=== PATIENT | female | born 1960 | race Caucasian/White ===

== ENCOUNTER 2017-09-28 18:54 | Emergency (ER) | payer MEDICAID ==
[~2017-09-28] VITALS: Ht 152.4 cm; Wt 54.4 kg
[~2017-09-28 18:54] MED LIST: ACETAMINOPHEN-1 EAC1 PO; AMITRIPTYLINE H75 M1 PO; ASPIR 8181 MG PO; ASPIRIN325; ASPIRIN81 M2 PO; ATORVASTATIN CA20 MG PO; CELEXA40 MG PO; CIPRO500 MG PO; CLONAZEPAM 0.50.5 M1 PO; CLONAZEPAM 1 MG1 M1; CLONAZEPAM 1 MG1 M1 PO; CREON DR 12,001 EACH; DILANTIN100 MG PO; EFFIENT10 MG PO; FIORICET-COD 31 EACH PO; FLAGYL500 MG PO; FLEXERIL PO; HYDROCODON-ACE1 EAC7 PO; HYDROCODON-ACE1 EAC8 PO; HYDROCODONE-AP1 EAC6 PO; IBUDONE 5-2001 EACH PO; IBUPROFEN 800800 M1 PO; KEPPRA 500 MG500 M1 PO; KEPPRA 500 MG500 MG PO; KEPPRA1000 MG PO; KLONOPIN0.5 MG PO; LINZESS145 MCG PO; LISINOPRIL10 MG PO; LISINOPRIL20 MG PO; MEDROLDOSEPACK PO; MIRALAX17 GM PO; MOBIC7.5 M1 PO; NAPROSYN500 MG PO; NITROGLYCERIN0.4 MG SUBLING; NORCO 5-325 TA1 EACH PO; NORCO 7.5-3251 EACH PO; NORFLEX100 MG PO; OMEPRAZOLE20 M2 PO; OXYCODONE HCL E10 MG; OXYCODONE HCL5 M1 PO; OXYCONTIN10 M1 PO; PANTOPRAZOLE SO40 M1 PO; PERCOCET 5-3251 EACH PO; PHENERGAN 25 MG25 M1 PO; PLAVIX 75 MG TA75 M1 PO; PREDNISONE 20 M20 M1 PO; PREDNISONE50 MG PO; PRILOSEC 20 MG20 MG PO; PRILOSEC20 MG PO; PRINIVIL20 MG PO; PROBIOTIC1 EAC1 PO; PROTONIX40 M1 PO; RANITIDINE HCL150 M1 PO; ROBAXIN 750 MG750 M1 PO; ROBAXIN 750 MG750 MG PO; ROBAXIN500 MG PO; ZANTAC 150MG T150 MG PO
[2017-09-28 19:08] VITALS: BP 148/100
[2017-09-28] MEDS ORDERED: KEPPRA 500 MG500 M2 PO (19:32)
== END 2017-09-28 19:39 | disposition home or self-care (01) ==
LOC: M.ERS 18:54
DX: Z76.0 Encounter for issue of repeat prescription (principal); I25.2 Old myocardial infarction; Z90.710 Acquired absence of both cervix and uterus; Z88.1 Allergy status to other antibiotic agents; Z88.2 Allergy status to sulfonamides

== ENCOUNTER 2019-01-24 22:59 | Emergency (ER) | payer MEDICAID ==
[~2019-01-24] VITALS: Ht 152.4 cm; Wt 54.4 kg
[~2019-01-24 22:59] MED LIST changes: +KEPPRA 500 MG500 M2 PO
[2019-01-24] MEDS ORDERED: CYMBALTA60 MG PO (23:31)
[2019-01-24] MEDS ORDERED: CLONAZEPAM 1 MG1 M1 PO (23:32)
[2019-01-25] MEDS ORDERED: CLONAZEPAM 1 MG1 M1 PO (00:19)
[2019-01-25 00:33] VITALS: BP 118/70
== END 2019-01-25 00:33 | disposition home or self-care (01) ==
LOC: M.ERS 22:59
DX: F41.9 Anxiety disorder, unspecified (principal); Z76.0 Encounter for issue of repeat prescription; F32.9 Major depressive disorder, single episode, unspecified; M19.90 Unspecified osteoarthritis, unspecified site; Z88.1 Allergy status to other antibiotic agents; Z88.2 Allergy status to sulfonamides; Z88.5 Allergy status to narcotic agent; Z88.8 Allergy status to other drugs, medicaments and biological substances; Z90.710 Acquired absence of both cervix and uterus; Z86.14 Personal history of Methicillin resistant Staphylococcus aureus infection

== ENCOUNTER 2019-02-18 21:34 | Inpatient (IN) | payer MEDICAID ==
[~2019-02-18] VITALS: Ht 152.4 cm; Wt 59.9 kg
--- NOTE | ~2019-02-18 | PROC ---
[address] [address] PROCEDURE REPORT Name: CHANNING GOMEZ Room: [address] IN .R.#: [id number] Admission: 02/19/19 Attend Phys: Kristian Jain MD Discharge: 02/23/19 Date of : 58 Report #: [id number] THIS REPORT FOR: //name// For GI report, please see the Provation report in Perceptive 7 content. By: 0607Medical Records Staff NICHO /DAYTON
[~2019-02-18 21:34] MED LIST changes: +CYMBALTA60 MG PO
[2019-02-18 21:36] VITALS: BP 97/55
[2019-02-18 21:58] LABS: ABSOLUTE BASOPHILS 0.1 thou/uL (0.0-0.2); ABSOLUTE MONOCYTES 0.3 thou/uL (0.0-1.2); ABSOLUTE NEUTROPHILS 3.2 thou/uL (1.6-8.1); BASOPHILS 0.7 %; EOSINOPHILS 0.5 %; HEMATOCRIT 50.2 % (37.0-47.0); HEMOGLOBIN 17.2 gm/dL (12.0-15.0); MCH 29.6 pg (26.0-34.0); MCHC 34.2 g/dL (28.0-37.0); MCV 86.7 fL (80.0-100.0); MONOCYTES 4.5 %; MPV 7.8 fl. (7.2-11.1); NUCLEATED RBCS 0 /100WBC; PLATELET COUNT* 370 thou/uL (150-400); POLYS 42.3 %; RBC 5.79 mil/uL (4.20-5.00); RDW-CV 13.6 % (10.5-14.5); WBC 7.6 thou/uL (4.0-11.0)
[2019-02-18 22:12] LABS: BUN 9 mg/dL (7-18); CALCIUM 9.2 mg/dL (8.5-10.1); CO2 16 mmol/L (21-32); CREATININE 0.9 mg/dL (0.6-1.3); GLUCOSE 133 mg/dL (70-99)
[2019-02-18 22:24] LABS: SODIUM 128 mmol/L (136-145)
[2019-02-18 22:25] LABS: ANION GAP 19 mmol/L (7-16); CHLORIDE 93 mmol/L (98-107); POTASSIUM 4.3 mmol/L (3.5-5.1)
[2019-02-18 22:35] LABS: ALBUMIN 4.3 g/dL (3.4-5.0); ALKALINE PHOSPHATASE 216 U/L (46-116); LIPASE 120 U/L (73-393); NT-PRO BRAIN NAT PEPTIDE 146 pg/mL (<300); SGOT 25 U/L (15-37); SGPT 19 U/L (30-65); TOTAL BILIRUBIN 0.5 mg/dL (<0.1-1.0); TOTAL PROTEIN 7.3 g/dL (6.4-8.2); TROPONIN-I LEVEL <0.06 ng/mL (<0.06)
--- NOTE | 2019-02-18 22:35 | NUR ---
PT HAS HAD A EXTREMELY LARGE SOFT BROWN BM. PT STATED HASNT BEEN TO BATHROOM IN A LONG TIME. PT CONTINUES TO SIT ON BED SINCLAIR
[2019-02-19] VITALS (13 sets, daily range): BP systolic 92–148; BP diastolic 53–121
[2019-02-19 00:24] LABS: INR 1.1; PROTIME 11.4 Seconds (9.20-11.50)
--- NOTE | 2019-02-19 00:43 | NUR ---
PT HAS HAD 3 LARGE SOFT BROWN STOOLS. PT C/O ABDOMINAL PAIN. MONITORS INTACT. FAMILY AT BEDSIDE.
[2019-02-19 01:51] LABS: URINE BILIRUBIN NEGATIVE (Negative); URINE BLOOD TRACE (Negative); URINE CLARITY CLEAR; URINE COLOR YELLOW; URINE GLUCOSE-RANDOM NEGATIVE (Negative); URINE KETONES NEGATIVE (Negative); URINE LEUKOCYTES-REFLEX NEGATIVE (Negative); URINE NITRITE-REFLEX NEGATIVE (Negative); URINE PROTEIN NEGATIVE (Negative); URINE SPECIFIC GRAVITY <= 1.005 (1.005-1.030); URINE UROBILINOGEN 0.2 E.U./dl (0.2-1.0)
[2019-02-19 01:58] LABS: AMP/METHAMP Negative (Negative); BARBITURATES Negative (Negative); BENZODIAZEPINES Negative (Negative); COCAINE Negative (Negative); METHADONE Negative (Negative); OPIATES Negative (Negative); PCP Negative (Negative); THC Negative (Negative)
[2019-02-19 04:39] LABS: ALBUMIN 3.2 g/dL (3.4-5.0); CALCIUM 8.2 mg/dL (8.5-10.1); POTASSIUM 4.1 mmol/L (3.5-5.1); TOTAL BILIRUBIN 0.3 mg/dL (<0.1-1.0); TOTAL PROTEIN 5.9 g/dL (6.4-8.2)
[2019-02-19 04:59] LABS: HEMATOCRIT 49.7 % (37.0-47.0); HEMOGLOBIN 15.9 gm/dL (12.0-15.0); MCH 28.8 pg (26.0-34.0); MCHC 31.9 g/dL (28.0-37.0); MCV 90.3 fL (80.0-100.0); NUCLEATED RBCS 0 /100WBC; RBC 5.51 mil/uL (4.20-5.00); RDW-CV 13.7 % (10.5-14.5); WBC 19.4 thou/uL (4.0-11.0)
--- NOTE | 2019-02-19 05:02 | NUR ---
PATIENT TO ICU ROOM 2 AT 0230 ACCOMPANIED BY RN AND ON A BED. NO BM SINCE ARRICAL, DENIES NAUSEA. PAIN MED FOR ABDOMINAL PAIN X1 WITH COMPLETE RELIEF, SLEEPING AT THIS TIME. VITALS WNL, AFEBRILE. ON 2L NC FOR COMFORT. ABLE TO TURN SELF IN BED. CALL LIGHT WITHIN REACH.
[2019-02-19 05:16] LABS: PLATELET COUNT* 264 thou/uL (150-400)
[2019-02-19 05:59] LABS: ABSOLUTE LYMPHOCYTES 1.6 thou/uL (0.8-5.3); ABSOLUTE MONOCYTES 0.2 thou/uL (0.0-1.2); ABSOLUTE NEUTROPHILS 17.7 thou/uL (1.6-8.1)
[2019-02-19 06:00] LABS: ANISOCYTOSIS 1+; PLATELET ESTIMATE ADEQUATE; POIKILOCYTOSIS 1+
--- NOTE | 2019-02-19 08:18 | NUR ---
PATIENT GOING TO CTA AND ULTRASOUND AT THIS TIME
[2019-02-19] MEDS ORDERED: BENTYL 10 MG CA10 M1 PO (09:16)
--- NOTE | 2019-02-19 10:09 | NUR ---
PATIENT NOW TELE STATUS
--- NOTE | 2019-02-19 10:26 | NUR ---
cm completed initial assessment. pt a&ox3. pt states she lives with her son and her grandchildren. states her mother recently moved in w/them temporarily. pt is active and independent. states she walks "[place]" often. walks several miles daily. pt has been understress d/t her son not feeling well and recent separation from spouse. cm assessed for support system, resource needs. pt uses [facility] for emotional support. was seeing a pyschologist there, and attends meetings there. also, has support from family system. she volunteers sometimes when feeling good. pt has no DMEs. cm to remain avail to follow pt and assist as needed w/ d/c needs. ICU rounds: pt is officially MS tele status now. will move upstairs today. has chronic px issues. .
--- NOTE | 2019-02-19 11:30 | NUR ---
CONSULTED TO PLACE PICC FOR PRODUCTION OPERATIONS MANAGER ATB AND FLUIDS. CHART AND HISTORY REVIEWED. SPOKE WITH PT REGUARDING RISK NAD BENEFIT. STATED HAS HAD PICC LINE IN PAST. VOICED UNDERSTANDING ADN AGREED. RIGHT UPPER ARM ASSESSED WITH ULTRASOUND. RIGHT BASILIC IDENTIFED AND NOTED TO BE WIDLEY PATENT. DOUBLE LUMAN POWER PICC PLACED PER POLICY. LINE TRIMMED AT 40CM AND ADVANCED 39CM LEAVING 1CM EXTERNAL. LINE SECURED. BOTH LUMANS HAVE GOOD BRISK BLOOD RETURN AND FLUSH WITH EASE. TIP CONFORMATION MARISELA JAQUEZ 3CG. KIMBERLYN RELEASED FOR USE TO PRIMARY RN.
--- NOTE | 2019-02-19 14:35 | NUR ---
REPORT CALLED TO ARTURO RN. ALL QUESTIONS ANSWERED. PATIENT TAKEN BY WHEELCHAIR TO ROOM 220 WITH NURSING STAFF. ALL BELONGINGS, MEDICATIONS, CHART TAKEN WITH PATIENT.
--- NOTE | 2019-02-19 14:48 | NUR ---
RECEIVED REPORT AND ASSUMED CARE OF PT @ 6049.PT IS A/O X4,VSS,TRACING SR ON THE MONITOR.THIS NURSE REVIEWED PREVIOUS NURSE CHARTING AND AGREES WITH CHARTING.WILL CONTINUE TO MONITOR
--- NOTE | 2019-02-19 17:01 | NUR ---
VSS.MOTION PICTURE OPERATOR IN PLACE WITH NO CHANGES.PT PROGRESSING TOWARDS GOALS.C/O PAIN IN BACK-MANAGED WELL WITH MEDICATIONS.IV PATENT WITH IV FLUIDS INFUSING PER ORDERS.PT TO BE NPO AT MIDNIGHT FOR GI PROCEDURE IN THE AM.PT INFORMED OF PLAN OF CARE AND COMMUNICTES UNDERSTANDING.HOURLY ROUNDING COMPLETED FOR PT SAFETY.CALL LIGHT WITHIN REACH.WILL CONTINUE TO MONITOR FOR DURATION OF SHIFT.
[2019-02-20] VITALS: BP 98/50
[2019-02-20 04:00] VITALS: BP 106/58
--- NOTE | 2019-02-20 05:07 | NUR ---
PATIENT PARTIALLY PROGRESSING TOWARDS GOALS: PATIENT RECEIVED PAIN MEDICATION FOR ABDOMINAL PAIN, RELIEF OBTAINED. PATIENT STATES SHE WAS "ABLE TO SLEEP FOR THE FIRST TIME IN A LONG TIME." PAIN MEDICATION BEING HELD NOW FOR GASTRIC EMPTYING TEST TODAY. NPO. PATIENT VERBALIZES UNDERSTANDING. CALL LIGHT WITHIN REACH
[2019-02-20 07:45] VITALS: BP 104/58
[2019-02-20 07:50] LABS: HEMATOCRIT 27.1 % (37.0-47.0); MCH 29.8 pg (26.0-34.0); MCHC 33.5 g/dL (28.0-37.0); MCV 88.9 fL (80.0-100.0); MPV 7.7 fl. (7.2-11.1); RBC 3.05 mil/uL (4.20-5.00); RDW-CV 13.4 % (10.5-14.5)
[2019-02-20 07:52] LABS: HEMOGLOBIN 9.1 gm/dL (12.0-15.0); WBC 3.5 thou/uL (4.0-11.0)
[2019-02-20 08:13] LABS: ALBUMIN 2.7 g/dL (3.4-5.0); CALCIUM 7.7 mg/dL (8.5-10.1); CREATININE 0.7 mg/dL (0.6-1.3); MAGNESIUM 1.5 mg/dL (1.8-2.4); POTASSIUM 3.9 mmol/L (3.5-5.1); TOTAL BILIRUBIN 0.2 mg/dL (<0.1-1.0); TOTAL PROTEIN 4.8 g/dL (6.4-8.2)
--- NOTE | 2019-02-20 09:00 | EKG ---
[place] [address] ELECTROCARDIOGRAM REPORT Name: CHANNING GOMEZ Room: [address] ADM IN .R.#: [id number] Admission: 02/19/19 Attend Phys: Kristian Jain MD Discharge: Date of : 58 Report #: [id number] THIS REPORT FOR: //name// [facility] ED Test Date: 2019-02-18 Test Time: 21:59:15 Pat Name: CHANNING GOMEZ Department: Room: [facility] Gender: F Requirements Manager: [place] : 1960 Requested By: Tosha Schulz Order Number: [id number] MD: Cash Chew Measurements Intervals Nakina Rate: 103 P: 42 CT: 130 QRS: 16 QRSD: 80 T: 74 QT: 331 QTc: 434 Interpretive Statements Sinus tachycardia Possible left atrial enlargement Minimal ST depression, lateral leads Compared to ECG 05/27/2017 16:18:08 ST (T wave) deviation now present Sinus rhythm no longer present Electronically Signed On 02-20-2019 9:00:50 CDT by Cash Chew [email or web address] <ELECTRONICALLY SIGNED> By: Cash Chew MD, FACC 02/20/19 0900 2159 [id number] Cash Chew MD, [facility] /EPI
[2019-02-20 12:21] VITALS: BP 102/64
[2019-02-20 12:28] LABS: CALCIUM 7.9 mg/dL (8.5-10.1); CREATININE 0.7 mg/dL (0.6-1.3)
[2019-02-20 16:30] VITALS: BP 115/65
--- NOTE | 2019-02-20 17:48 | NUR ---
PATIENT RESTING IN BED. PATIENT IS UP AD STEPHIE IN ROOM. PATIENT HAS COMPLAINTS OF ABDOMINAL PAIN, TREATED WITH MORPHINE. PATIENT HAD GET THIS AM WITHOUT INCIDENT. PATIENT STARTED ON BOWEL PREP THIS EVENING FOR SUNDAY COLONOSCOPY. PATIENT IS TOLERATING CLEAR LIQUIDS. PATIENT DENIES ANY NEEDS AT THIS TIME. CALL LIGHT WITHIN REACH. WILL CONTINUE TO MONITOR.
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
[2019-02-20 19:45] VITALS: BP 129/80
[2019-02-21] VITALS: BP 131/75
[2019-02-21 04:00] VITALS: BP 128/75
[2019-02-21 04:17] LABS: HEMATOCRIT 27.1 % (37.0-47.0); HEMOGLOBIN 9.3 gm/dL (12.0-15.0); MCH 30.6 pg (26.0-34.0); MCHC 34.4 g/dL (28.0-37.0); MPV 7.6 fl. (7.2-11.1); RBC 3.04 mil/uL (4.20-5.00); RDW-CV 13.4 % (10.5-14.5); WBC 3.3 thou/uL (4.0-11.0)
[2019-02-21 04:33] LABS: CREATININE 0.7 mg/dL (0.6-1.3); POTASSIUM 3.9 mmol/L (3.5-5.1)
--- NOTE | 2019-02-21 05:30 | NUR ---
Patient progressing towards goals: VSS on room air. Patient continues to have c/o abdominal pain, relieved with Morphine. Patient tolerating clear liquids. Bowel prep in progress for EGD/Colonoscopy 02/22. Patient has not had a BM yet. Call light within reach
[2019-02-21 08:00] VITALS: BP 120/67
[2019-02-21 11:30] VITALS: BP 123/60
--- NOTE | 2019-02-21 14:19 | NUR ---
WAS ASKED TO CALL IN SCRIPT TO [facility] FOR LINZESS TO PHARMACY. SHAYY/SURVEY FIELD TECHNICIAN FOR GI WAS ON FLOOR AND ASKED THAT DOSE BE THE 145MCG DAILY, CALLED IN UNDER NAME TO CHECK COST AND IF NEEDED PRIOR AUTH. SPOKE WITH SAIGE/BRADY. AWAIT CALL BACK
[2019-02-21 16:33] VITALS: BP 131/77
--- NOTE | 2019-02-21 17:53 | NUR ---
PATIENT TOLERATING PREP WELL. RECEIVING PAIN MED Q 3 HOURS. SOME LIQUID STOOLS SEEN COPIOUS URINE OUT. PROGRESSING.
[2019-02-21 19:40] VITALS: BP 137/71
[2019-02-22] VITALS: BP 133/79
[2019-02-22 04:00] VITALS: BP 159/83; BP 168/74
[2019-02-22 04:35] LABS: HEMOGLOBIN 9.4 gm/dL (12.0-15.0); MCH 29.8 pg (26.0-34.0); MCHC 33.5 g/dL (28.0-37.0); MCV 88.9 fL (80.0-100.0); MPV 7.8 fl. (7.2-11.1); RBC 3.15 mil/uL (4.20-5.00); RDW-CV 13.5 % (10.5-14.5); WBC 4.2 thou/uL (4.0-11.0)
[2019-02-22 05:05] LABS: CALCIUM 7.9 mg/dL (8.5-10.1); CREATININE 0.5 mg/dL (0.6-1.3); MAGNESIUM 1.5 mg/dL (1.8-2.4); POTASSIUM 3.4 mmol/L (3.5-5.1)
--- NOTE | 2019-02-22 07:42 | NUR ---
PT CARE ASSUMED AT 1930. SAT MAINTAINED IN RA. ALERT AND ORIENTED X4. CALL LIGHT WITHIN REACH AND BED IN LOW POSITION. C/O PAIN, MEDICATION GIVEN PER EMAR. HOURLY ROUNDING DONE FOR PT SAFETY.
[2019-02-22 08:10] VITALS: BP 116/72
--- NOTE | 2019-02-22 09:02 | NUR ---
ASSUMED CARE OF PT THIS AM AROUND 07- SHEEP FARMER IN PLACE ORDERED, TRACING SB- UPON ASSESSMENT PT NOTED TO BED RESTING IN BED- PT A&O X4- CONTINENT OF BOWEL AND BLADDER- UP AD-STEPHIE IN ROOM, STEADY GAIT NOTED- LCTA, RESP EVEN AND UN-LABORED- VSS, O2 SAT 94% ON RA- ABD SOFT/ROUND/TENDER, BS X4 QUADS- PT NOTED TO HAVE BM THIS AM, CURRENTLY ON BOWLE PREP FOR SCHEDULED EGD/COLONOSCOPY TODAY- CURRENTLY NPO- RUE PICC NOTED C/D/I, IVF INFUSSING PRESCIBED- CALL LIGHT AND PERSONAL BELONGINGS WITH IN REACH- PT MAKES NEEDS KNOWN- ALL NEEDS MET AT THIS TIME-WCTM
[2019-02-22 12:28] VITALS: BP 151/87
--- NOTE | 2019-02-22 12:50 | NUR ---
SPOKE WITH DR HERNANDEZ, UNABLE TO OBTAIN AUTH WITH ADD'L INFO FOR LINZESS OVER WEEKEND MEDICAID IS CLOSED AND DRUG NEEDS PRIOR AUTH. WILL PURSUE ON SUNDAY
--- NOTE | 2019-02-22 16:14 | NUR ---
PT CURRENTLY RESTING IN BED- SENIOR DENTIST D/C'D WITH PT NOTED TO BE MS STATUS- RUE PICC NOTED INTACT, IVF INFUSSING PRESCIBED- EGD/COLONOSCOPY COMPLETED THIS SHIFT WITH RESULTS NOTED IN MEDITECH- IV ABT D/C PER GI THIS SHIFT POST PROCEDURE- BENTYL X1 THIS SHIFT AT 1300, GOOD PO INTAKE NOTED-CALL LIGHT AND PERSONAL BELONGINGS WITH IN REACH- PT MAKES NEEDS KNOWN- ALL NEEDS MET AT THIS TIME-WCTM
[2019-02-22 20:00] VITALS: BP 156/95
[2019-02-23 03:12] LABS: HEMATOCRIT 27.9 % (37.0-47.0); HEMOGLOBIN 9.5 gm/dL (12.0-15.0); MCH 30.1 pg (26.0-34.0); MCV 88.7 fL (80.0-100.0); RBC 3.15 mil/uL (4.20-5.00); RDW-CV 13.7 % (10.5-14.5); WBC 4.2 thou/uL (4.0-11.0)
[2019-02-23 04:20] LABS: CALCIUM 7.9 mg/dL (8.5-10.1); CREATININE 0.6 mg/dL (0.6-1.3); MAGNESIUM 1.6 mg/dL (1.8-2.4); PHOSPHORUS* 3.3 mg/dL (2.5-4.9); POTASSIUM 3.7 mmol/L (3.5-5.1)
--- NOTE | 2019-02-23 05:11 | NUR ---
PT SLEPT ON AND OFF THIS SHIFT. ASSESSMENT DOCUMENTED. MEDS GIVEN PER E-MAR. PATIENT ORIENTED TO SELF, SOMETIMES PLACE. PTS DAUGHTER REMAINED AT BEDSIDE. PT STATED SHE DID NOT HAVE PAIN, BUT PTS DAUGHTER STATED THAT SHE DID, PTS DAUGHTER WOULD TELL PATIENT WHAT NUMBER TO RATE HER PAIN. PT HAD STRESS INCONTINENCE THROUGH NIGHT. IV PATENT, FLUIDS INFUSING. WILL CONTINUE WITH PLAN OF CARE.
--- NOTE | 2019-02-23 05:16 | NUR ---
PT SLEPT ON AND OFF THIS SHIFT. ASSESSMENT DOCUMENTED. MEDS GIVEN PER E-MAR. PICC PATENT, FLUIDS INFUSING. PAIN AND NAUSEA MEDS GIVEN PER E-MAR. WILL CONTINUE WITH PLAN OF CARE.
[2019-02-23 08:00] VITALS: BP 138/80
[2019-02-23] MEDS ORDERED: ZOFRAN ODT4 MG PO (10:20)
[2019-02-23] MEDS ORDERED: NORCO 5-325 TA1 EAC1 PO (10:20)
[2019-02-23] MEDS ORDERED: OMEPRAZOLE40 MG PO (10:20)
[2019-02-23 11:36] VITALS: BP 144/77
[2019-02-23] MEDS ORDERED: CLONAZEPAM 1 MG1 M1 PO (14:34)
[2019-02-23 14:37] VITALS: BP 144/77
--- NOTE | 2019-02-23 16:45 | NUR ---
PT UP IN ROOM WITH STEADY GAIT. TOLERATING PO WELL. REPORTS OCASSIONAL ABD PAIN. PLAN TO DC TONIGHT
--- NOTE | 2019-02-25 15:07 | PATH ---
[address] [address] PATHOLOGY RPT PROCEDURE Name: NANETTE FITZGERALD Room: [address] IN ..#: [id number] Admission: 02/19/19 Date of : 58 Discharge: 02/23/19 Report #: [id number] Path Case #: [id number] [facility] Accession Number: [id number] . 01 Material submitted: . PART A: stomach - GASTRIC BIOPSY PART B: colon - RANDOM COLON BIOPSIES . 01 Clinical history: . A. For H. pylori . 02 Diagnosis: A. 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 . B. Random colon biopsies: - Faint melanosis coli and focal fresh hemorrhage in otherwise normal colonic mucosa. (HOLLY:alexandra; 02/25/2019) . Special stain: H. pylori immuno on A MBR/02/25/2019 . 02 Electronically signed: . Vahid Berger MD, Pathologist NPI- [id number] . 01 Gross description: . A. The specimen is received in formalin, labeled "Nanette Fitzgerald, gastric biopsy" and consists of 2 fragments of pink-ness tissue measuring 0.3 x 0.3 cm and 0.4 x 0.2 cm which are entirely submitted in A1. . B. The specimen is received in formalin, labeled "Nanette Fitzgerald, random colon biopsies" and consists of multiple fragments of ness tissue measuring 1.2 x 0.8 x 0.2 cm in aggregate which are entirely submitted in B1. (SDY; 02/24/2019) SYU/SYU . 02 Pathologist provided ICD-10: K29.50, K63.89 . 02 CPT . 480474, 645256, M25188 Specimen Comment: A courtesy copy of this report has been sent to Specimen Comment: [phone], . Specimen Comment: Report sent to / DR ZULETA Performed at: [address] [place] [address] PATHOLOGY RPT PROCEDURE Name: NANETTE FITZGERALD OVIDIO Room: [address] IN M.R.#: [id number] Admission: 02/19/19 Date of : 58 Discharge: 02/23/19 Report #: [id number] Path Case #: [id number] [facility] [place] [address] [facility] [address], [place], [place] [id number] MD Hayden Guzman MD Phone: [phone] Performed at: [address] [facility] [address] [place] [id number] MD Vahid Berger MD Phone: [phone]
== END 2019-02-23 16:49 | disposition home or self-care (01) | DRG 394 ==
LOC: M.ERS 21:34 → M.2W 02-19 00:10 → M.TBA-ER 02-19 00:10 → M.ICU 02-19 00:10 → M.2W 02-19 14:31
PROVIDERS: Emergency Medicine; Internal Medicine; Surgery; ADMIT Internal Medicine
PROC: 05HY33Z Insertion of Infusion Device into Upper Vein, Percutaneous Approach (ICD-10-PCS; 2019-02-19)
PROC: 0DB68ZX Excision of Stomach, Via Natural or Artificial Opening Endoscopic, Diagnostic (ICD-10-PCS; principal; 2019-02-22)
DX: K55.9 Vascular disorder of intestine, unspecified (principal); E87.1 Hypo-osmolality and hyponatremia; R65.10 Systemic inflammatory response syndrome (SIRS) of non-infectious origin without acute organ dysfunction; F41.9 Anxiety disorder, unspecified; F32.9 Major depressive disorder, single episode, unspecified; I25.10 Atherosclerotic heart disease of native coronary artery without angina pectoris; K29.70 Gastritis, unspecified, without bleeding; R68.81 Early satiety; R56.9 Unspecified convulsions; D64.9 Anemia, unspecified; K29.80 Duodenitis without bleeding; K58.1 Irritable bowel syndrome with constipation; M19.90 Unspecified osteoarthritis, unspecified site; I25.2 Old myocardial infarction; Z95.5 Presence of coronary angioplasty implant and graft; Z87.891 Personal history of nicotine dependence; Z86.14 Personal history of Methicillin resistant Staphylococcus aureus infection; Z90.710 Acquired absence of both cervix and uterus; Z87.828 Personal history of other (healed) physical injury and trauma; Z79.82 Long term (current) use of aspirin; Z79.899 Other long term (current) drug therapy; Z88.1 Allergy status to other antibiotic agents; Z88.2 Allergy status to sulfonamides; Z88.8 Allergy status to other drugs, medicaments and biological substances; Z80.0 Family history of malignant neoplasm of digestive organs; Z82.5 Family history of asthma and other chronic lower respiratory diseases

== ENCOUNTER 2019-12-25 01:50 | Inpatient (IN) | payer MEDICAID ==
[2019-12-25] VITALS (65 sets, daily range): BP systolic 82–153; BP diastolic 49–97
[~2019-12-25] VITALS: Ht 152.4 cm; Wt 57.6 kg
--- NOTE | ~2019-12-25 | EMS ---
[address] [address] EMS Patient Care Report Name: CHANNING GOMEZ Room: [address] IN .R.#: [id number] Admission: 12/25/19 Attend Phys: Evans Mitchell Discharge: Date of : 58 Report #: [id number] THIS REPORT FOR: //name// Report Transmitted: 12/26/2019 11:42 EMS Care Summary [facility] [employer] [facility] Incident [id number] @ 12/25/2019 00:56 Incident Location [address] [place] [address] Patient CHANNING GOMEZ Female, 59 Years 1960 Patient Address [address] [place] [address] Patient History Irritable Bowel Syndrome,Crohn's Disease, Chief Complaint Abdominal Pain & Constipation Disposition Transported No Lights/[place] Dis[place] Reason Sick Person Transported To [facility] Narrative Med 1 and Engine 1 were dispatched for a [age] year-old female c/o abdominal pain and nausea for the last two days. Upon arrival, family led us to a back bedroom where the patient was laying on a mattress on the floor. Patient had strong, regular bilateral pulses. Patient was moaning and c/o of abdominal pain and reported that she had Crohn's disease and IBS and has not had a bowl movement for almost a week. She denies taking any stool softness but is taking [facility] [address] [place] [address] EMS Patient Care Report Name: CHANNING GOMEZ Room: [address] ADM IN M.R.#: [id number] Admission: 12/25/19 Attend Phys: Evans Mitchell Discharge: Date of : 58 Report #: [id number] a pain medication and could not tele what for or what the name of it was. She reported that her last dose of the pain medication was approximately an hour ago the crew was unable to locate a bottle. The family continued coming into the room and getting in the way of patient care. I kindly asked the patient's daughter and small granddaughter that eat grabbing my hand to wait in the [address]. Patient's glucose was obtained with a result of 127 mg/dL. and a set of vitals. Patient rated her pain at an 7. Patient was assisted to the stretcher that was in the hallway and secured via the seatbelts and moved to the ambulance without incident. In the ambulance, patient was placed on the monitoring and evaluation advisor and it shown NSR with occasional PVC's. 12 led shown the same. A 20 GA IV catheter was placed in the patients left hand with a 20 GA IV catheter an a saline lock. Patient reported her pain and nausea were better. Med 1 went en route to [facility]. Patient was monitored en route with no change. Hospital report was given via radio with no questions or orders requested or received. Med 1 arrived at the hospital. Patient was moved into the ambulance without incident to room 8. Patient care was transferred to ER staff. No face sheet was obtained due to the hospital's system being down. Med 1 returned back into service. [id number] Rupert Initial Vitals @01:42P: 103,R: 18,BP: 102/58,SpO2: 96, @01:12P: 84,R: 16,BP: 100/54,Pain: 6/10,GCS: 15,Temp: 97.4F,Glucose: 127,SpO2: 91,Revised Trauma: 12, @01:32P: 104,R: 18,BP: 104/56,Pain: 6/10,GCS: 15,SpO2: 96,Revised Trauma: 12, Assessments @01:04MENTAL:Person Oriented,Time Oriented,Place Oriented,Event Oriented,SKIN:Diaphoresis,Pale,HEENT:Head/Face: No Abnormalities,LUNG SOUNDS:General: Diarrhea,General: Nausea,ABDOMEN:General: Diarrhea,General: Nausea,PELVIS//GI:No Abnormalities,EXTREMITIES:Left Arm: No Abnormalities,Right Arm: No Abnormalities,Left Leg: No Abnormalities,Right Leg: No Abnormalities,PULSE:NEURO:No Abnormalities, Impression Abdominal Pain Procedures @01:1812-Lead ECGResponse: UnchangedSucceeded@01:10StretcherResponse: Unchanged@01:08Oxygen FlowRate: 2 Device: Nasal Cannula (NC) [place]: [place] [address] EMS Patient Care Report Name: JASONCHANNING KAY Room: [address] IN [facility]#: [id number] Admission: 12/25/19 Attend Phys: Evans Mitchell Discharge: Date of : 58 Report #: [id number] Timeline 00:56,Call Received 00:56,Dispatched 00:59,En Route 01:02,On Scene 01:03,At Patient 01:08,Oxygen FlowRate: 2 Device: Nasal Cannula (NC) Response: UnchangedSucceeded, 01:10,Stretcher,Response: Unchanged 01:12,BP: 100/54 M,PULSE: 84,RR: 16 R,SPO2: 91 Ox,ETCO2: ,B,PAIN: 6,GCS: 15, 01:18,12-Lead ECG,Response: UnchangedSucceeded, 01:25,Depart Scene 01:32,BP: 104/56 M,PULSE: 104,RR: 18 R,SPO2: 96 Ox,ETCO2: ,BG: ,PAIN: 6,GCS: 15, 01:42,BP: 102/58 M,PULSE: 103,RR: 18 R,SPO2: 96 Ox,ETCO2: ,BG: ,PAIN: ,GCS: , 01:44,At Destination 02:15,Call Closed 02:15,In District Disclaimer v1.1 Copyright 2020 [employer] This EMS Care Summary contains data elements from the applicable legal record (which may be displayed differently). It is designed to provide pertinent information for the following purposes: continuity of care, clinical quality, and state data reporting. The complete legal record is available to ED staff and administrators of the receiving hospital in ES's Patient Tracker. All data is provided "as is."
[~2019-12-25 01:50] MED LIST changes: +BENTYL 10 MG CA10 M1 PO; +NORCO 5-325 TA1 EAC1 PO; +OMEPRAZOLE40 MG PO; +ZOFRAN ODT4 MG PO
--- NOTE | 2019-12-25 06:50 | NUR ---
0650 ADMITTED TO ICU FROM ER. COMPLAINTS ABOUT THE FECAL MANAGEMENT SYSTEM, STATES SHE TRIED TO PUSH IT OUT. I NOTICED THE LINE WAS NOT IN FAR IT SHOULD BE. I DEFLATED THE BALLOON AND REMOVED IT. FOUND FORMED STOOL ON THE END. DID NOT REINSERT. WHEN DR. MENDOZA ROUNDED, I INFORMED HER OF THIS. I ALSO INFORMED SURGERY TONIGHT WHEN I CALLED THE CONSULT. WHEN DR. MENDOZA, I INFORMED HER OF MY CVP READINGS. SHE CONFIRMED PLACEMENT WITH RADIOLOGIST. I ATTEMPTED TO REPOSITION PATIENT, RELEVEL AND ZERO AND FLUSH. REPORTED PAIN TO DR. MENDOZA. I CONFIRMED MEDICATIONS WITH PATIENT'S 2 PHARMACIES- [facility]. I UPDATED DGTR AND DGTR IN LAW TODAY. SON AT BEDSIDE THIS AFTERNOON. HE TOOK CLOTHES HOME AND LEFT BIBLE, CELL PHONE AND DOCTOR OF CHIROPRACTIC.
[2019-12-25 10:52] LABS: CREATININE 1.5 mg/dL (0.6-1.3); POTASSIUM 3.6 mmol/L (3.5-5.1)
[2019-12-25 10:53] LABS: ALBUMIN 3.5 g/dL (3.4-5.0); CALCIUM 8.7 mg/dL (8.5-10.1); HEMATOCRIT 47.2 % (37.0-47.0); HEMOGLOBIN 15.8 gm/dL (12.0-15.0); MCV 83.8 fL (80.0-100.0); RBC 5.64 mil/uL (4.20-5.00); TOTAL BILIRUBIN 0.4 mg/dL (<0.1-1.0); TOTAL PROTEIN 6.7 g/dL (6.4-8.2); WBC 12.5 thou/uL (4.0-11.0)
[2019-12-25 10:54] LABS: MCH 28.1 pg (26.0-34.0); MCHC 33.5 g/dL (28.0-37.0); MPV 7.7 fl. (7.2-11.1); PLATELET COUNT* 178 thou/uL (150-400); RDW-CV 15.6 % (10.5-14.5)
[2019-12-25 10:55] LABS: ABSOLUTE EOSINOPHILS 0.1 thou/uL (0.0-0.7); ABSOLUTE LYMPHOCYTES 0.5 thou/uL (0.8-5.3); ABSOLUTE MONOCYTES 0.1 thou/uL (0.0-1.2); ABSOLUTE NEUTROPHILS 11.7 thou/uL (1.6-8.1); BANDS 30.9 %; EOSINOPHILS 1.1 %; LYMPHOCYTES 4.1 %; MONOCYTES 0.9 %; URINE BILIRUBIN NEGATIVE (Negative); URINE CLARITY CLEAR; URINE COLOR YELLOW; URINE GLUCOSE-RANDOM NEGATIVE (Negative); URINE KETONES NEGATIVE (Negative); URINE PROTEIN TRACE (Negative)
[2019-12-25 10:56] LABS: AMP/METHAMP Negative (Negative); BARBITURATES Negative (Negative); BENZODIAZEPINES Negative (Negative); COCAINE Negative (Negative); METHADONE Negative (Negative); OPIATES Negative (Negative); PCP Negative (Negative); THC Negative (Negative); URINE BLOOD TRACE (Negative); URINE LEUKOCYTES NEGATIVE (Negative); URINE NITRITE NEGATIVE (Negative)
--- NOTE | 2019-12-25 12:40 | EKG ---
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: : 1960 Requested By: Evans Bryant Order Number: [id number] Reading MD: Solitario Joshi Measurements Intervals Erwin Rate: 113 P: 37 RI: 158 QRS: 9 QRSD: 87 T: -9 QT: 322 QTc: 442 Interpretive Statements Sinus tachycardia Ventricular premature complex Probable left atrial enlargement Nonspecific repol abnormality, inferior leads Compared to ECG 02/18/2019 21:59:15 Ventricular premature complex(es) now present Early repolarization now present Electronically Signed On 12-25-2019 12:39:15 CDT by Solitario Joshi [email or web address] <ELECTRONICALLY SIGNED> By: Solitario Joshi MD, [facility] 12/25/19 1239 9 9 Solitario Joshi MD, [facility] /EPI
[2019-12-25 17:00] LABS: CHOLESTEROL 114 mg/dL (<200); HDL CHOLESTEROL 46 mg/dL (>40); LDL CHOLESTEROL 59 mg/dL (<100); TC:HDL 2.5 Ratio (Not establshd); TRIGLYCERIDE 47 mg/dL (<150); VLDL 9 mg/dL (<40)
[2019-12-25 17:01] LABS: SERUM ASSESSMENT Clear
[2019-12-25 19:11] LABS: CALCIUM 7.3 mg/dL (8.5-10.1); CREATININE 1.2 mg/dL (0.6-1.3)
[2019-12-25 19:12] LABS: POTASSIUM 5.1 mmol/L (3.5-5.1)
--- NOTE | 2019-12-25 20:22 | NUR ---
REPORTED START OF PO VANCOMYCIN TO DR. MIMS AND CONCERN FOR RECENT XRAY AND ABDOMINAL PAIN. ORDERS RECV'D FOR SURGERY CONSULT. REPORTED INCREASED POTASSIUM AND TROPONIN TO DR. ZULETA, ALSO CONCERN ABOUT XRAY. ORDERS RECV'D. CONSULT CALLED TO DR. HAGER. PLANS TO ROUND ON PATIENT TONIGHT. REPORTED TO KARTIK WILKERSON
[2019-12-25 20:41] LABS: BE -11.4 mmol/L (-2 to +3); PCO2 31.1 mmHg (35.0-45.0); PO2 83.4 mmHg (75.0-100.0)
[2019-12-25 20:43] LABS: pH 7.276 (7.340-7.450)
[2019-12-25 20:46] LABS: HEMATOCRIT 38.1 % (37.0-47.0); MCH 27.6 pg (26.0-34.0); MCHC 33.3 g/dL (28.0-37.0); MCV 82.8 fL (80.0-100.0); NUCLEATED RBCS 0 /100WBC; PLATELET COUNT* 246 thou/uL (150-400); WBC 12.4 thou/uL (4.0-11.0)
[2019-12-25 20:54] LABS: HEMOGLOBIN 12.7 gm/dL (12.0-15.0)
[2019-12-25 21:23] LABS: ABSOLUTE MONOCYTES 0.5 thou/uL (0.0-1.2); ABSOLUTE NEUTROPHILS 10.9 thou/uL (1.6-8.1); ANISOCYTOSIS Occasional; PLATELET ESTIMATE ADEQUATE; POIKILOCYTOSIS Occasional
[2019-12-26] VITALS (54 sets, daily range): BP systolic 90–156; BP diastolic 47–102
[2019-12-26 04:12] LABS: GLYCOHEMOGLOBIN (HGB A1C) 5.3 % (4.8-5.6)
[2019-12-26 06:36] LABS: HEMOGLOBIN 11.5 gm/dL (12.0-15.0); MCH 27.8 pg (26.0-34.0); MCHC 33.7 g/dL (28.0-37.0); MCV 82.4 fL (80.0-100.0); MPV 7.3 fl. (7.2-11.1); RBC 4.13 mil/uL (4.20-5.00); RDW-CV 15.5 % (10.5-14.5)
[2019-12-26 06:40] LABS: PCO2 29.6 mmHg (35.0-45.0); PO2 78.2 mmHg (75.0-100.0); pH 7.357 (7.340-7.450)
[2019-12-26 07:10] LABS: ALBUMIN 1.9 g/dL (3.4-5.0); CALCIUM 7.5 mg/dL (8.5-10.1); CREATININE 1.1 mg/dL (0.6-1.3); MAGNESIUM 1.8 mg/dL (1.8-2.4); POTASSIUM 4.3 mmol/L (3.5-5.1); TOTAL BILIRUBIN 0.3 mg/dL (<0.1-1.0); TOTAL PROTEIN 4.4 g/dL (6.4-8.2); TROPONIN-I LEVEL 0.33 ng/mL (<0.06)
--- NOTE | 2019-12-26 07:34 | CON ---
[address] [address] CONSULTATION Name: CHANNING GOMEZ Room: [address] ADM IN M.R.#: [id number] Admission: 12/25/19 Attend Phys: Evans Mitchell Discharge: Date of : 58 Report #: [id number] THIS REPORT FOR: //name// cc: NATHALIE Berger family physician/PCP NATHALIE Berger family physician/PCP ~ THIS REPORT FOR: //name// CC: NATHALIE physician/PCP Evans Bryant DATE OF SERVICE: 12/25/2019 INFECTIOUS DISEASE CONSULTATION ATTENDING PHYSICIAN: Dr. Bryant. REASON FOR EVALUATION: Pneumonitis, complicated by severe sepsis, likely has colitis as well. HISTORY OF PRESENT ILLNESS: Chart reviewed, patient examined. This is a 59-year-old with fairly extensive medical history, has known vasculopathy, who has been ill for 48-72 hours prior to admission, had complaints of abdominal pain which she described as a cramping or colicky like , difficulty with bowel movement associated nausea, emesis, did experience chills as well as she believes fevers. Underwent evaluation and was found to have elevated lactic acid. CT of the pelvis showed basilar infiltrates, also multiple loops of small and large bowel and question of an enteritis versus colitis including inflammatory bowel disease, has had to be hyponatremic as well. Due to some hemodynamic instability, she was placed on norepinephrine, although this has been discontinued. She is ill, although not overtly encephalopathic. ALLERGIES: LISTED TO ERYTHROMYCIN, SULFA, TRAMADOL, COMPAZINE. CURRENT MEDICATIONS: Include levofloxacin, Zosyn, vancomycin, fentanyl as needed, p.r.n. analgesics, antiemetics, pantoprazole, levetiracetam. PAST MEDICAL HISTORY: As described above. History of Crohn's disease, degenerative arthritis, history of Clostridium difficile, has known vasculopathy with previous myocardial infarction, seizures, history of depression, PTSD. SOCIAL HISTORY: Former smoker. No ethanol. No illicit drug use. FAMILY HISTORY: Noncontributory. REVIEW OF SYSTEMS: Otherwise unremarkable with [place] [address] CONSULTATION Name: CHANNING GOMEZ Room: [address]#: [id number] Admission: 12/25/19 Attend Phys: Evans Mitchell Discharge: Date of : 58 Report #: [id number] PHYSICAL EXAMINATION: GENERAL: [id number] distress, appears somewhat chronically ill, undernourished. VITAL SIGNS: Pending. HEENT: Normocephalic. Extraocular muscles intact. NECK: Supple. LUNGS: Diminished breath sounds. HEART: Borderline tachycardic. I do not appreciate a murmur. ABDOMEN: Somewhat distended, not overtly firm. It is tender. GENITOURINARY: Deferred. RECTAL: Deferred. LABORATORY DATA: Most recent lactic acid 1.5. TSH of 2.729. Troponin elevated at 0.17. Drug screen was negative. Urinalysis unremarkable. CBC: White count 12.5, H and H 15.8 and 47.2, platelets of 178. Electrolytes: Sodium 123, potassium 3.6, chloride 91, bicarbonate is 17, anion gap of 15, BUN and creatinine of 13 and 1.5, glucose of 219, alkaline phosphatase is elevated at 503. Albumin of 3.5. CT as described above. Chest x-ray, no acute process. ASSESSMENT: Abdominal pain with imaging suggestive of enteritis as well as colitis, history of Crohn's. There is apparently a history of Clostridium difficile as well, that study is pending. We will continue therapy to cover may well be colonic pathogens. I do not have a sense of whether this may be gastroenteritis due to possible food contamination. Secondly, has pneumonitis and above regimen should give reasonable coverage. At this point, seems to have stabilized to some degree just with hydration, I think there is a significant component of dehydration associated with her presentation. We will send off stool cultures as well. Await results of blood cultures. She remains tenuous. We will follow expectantly. <ELECTRONICALLY SIGNED> By: Juan Miguel Garcia MD 12/26/19 0734 1341 [id number] Garcia MD /nt
--- NOTE | 2019-12-26 08:47 | NUR ---
PATIENT STILL PASSING BLOODY STOOLS. REMAINS IN PRECAUTIONS FOR C DIFF. STOOL SAMPLE STILL PENDING. SURGERY ROUNDED ON PATIENT AT THE START AND END OF SHIFT. PER SURGERY, NO NEED FOR ANY SURGICAL INTERVENTION WITH THE PATIENT. PATIENT MADE STRICT NPO EXCEPT MEDICATIONS. SHE DID SPIKE A LOW FEVER DURING THE SHIFT WHICH WAS RESOLVED WITH TYLENOL. PAIN POORLY CONTROLLED WHILE AWAKE BUT THE PATIENT DID SLEEP FOR A FEW HOURS LAST NIGHT WITHOUT INCIDENT. BUTTOCKS AREA REDDENED FROM REPEATED BM'S. BARRIER CREAM APPLIED AND TURNS Q2H. NO OTHER SIGNIFICANT EVENTS THIS SHIFT. WCTM
--- NOTE | 2019-12-26 08:58 | NUR ---
1108 ASSUMED CARE OF PATIENT. INCONTINENT OF SMALL AMOUNT MAROON LIQUID SEE DOCUMENTED ASSESSMENT
--- NOTE | 2019-12-26 14:49 | CON ---
[address] [address] CONSULTATION Name: CHANNING GOMEZ Room: [address] ADM IN M.R.#: [id number] Admission: 12/25/19 Attend Phys: Evans Mitchell Discharge: Date of : 58 Report #: [id number] THIS REPORT FOR: //name// cc: NATHALIE Berger family physician/PCP NATHALIE - Celine family physician/PCP ~ THIS REPORT FOR: //name// CC: NATHALIE physician/PCP Evans Castle DATE OF SERVICE: 12/26/2019 CARDIOLOGY CONSULTATION HISTORY OF PRESENT ILLNESS: The patient is a 59-year-old single white female who was admitted yesterday complaining of chest pain. The patient has had several hospitalizations here at [facility] in the past. She was admitted here in 2016 with a syncopal spell. She complained of chest pain. She was seen by Dr. Chew and felt to have a non-STEMI. She underwent cardiac catheterization by Dr. Johns, who placed a stent in the stenosis in the left anterior descending artery. Ejection fraction was 60%. There was no significant disease in the circumflex or right coronary artery. She has had several hospitalizations since that time. She was admitted here in 2017 with abdominal pain and chronic back pain. She has a history of seizures. She also has a history of chronic abdominal pain. She was in the hospital last 02/2019 with abdominal pain, felt to have colitis. She had an upper GI that showed gastritis, duodenitis. Colonoscopy showed evidence of colitis. She was eventually discharged. She states she stays fairly active. Recently, she has not been feeling well. She has had intermittent tightness in her chest. She has had a cough and felt weak. Yesterday, she felt diaphoretic and some abdominal pain. Denied any cough. She has had constipation. Denied increased shortness of breath or edema. She finally called the ambulance and was brought here to [facility] yesterday. She was noted to be hypotensive and felt to have sepsis. She was seen by Infectious Disease. She has had no palpitations. Because of her history of coronary artery disease, Cardiology consultation requested. PAST MEDICAL HISTORY: She has had back surgery, hysterectomy for uterine cancer, ankle surgery. She has a history of hypertension. MEDICATIONS: On admission included aspirin, clonazepam, Cymbalta, hydrocodone, Keppra, omeprazole. ALLERGIES: SHE HAS AN ALLERGY TO ERYTHROMYCIN [place] [address] CONSULTATION Name: CHANNING GOMEZ Room: [address] IN M.R.#: [id number] Admission: 12/25/19 Attend Phys: Evans Mitchell Discharge: Date of : 58 Report #: [id number] FAMILY HISTORY: Positive for heart disease. SOCIAL HISTORY: She is , lives in [place], [place]. She is not working at this time. She smokes one and a half pack of cigarettes a week. No alcohol abuse. 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 REVIEW OF SYSTEMS: She has had no history of stroke. She has seizures. She has had peptic ulcer in the past and required transfusion. No liver disease, no kidney disease. She had uterine cancer. She saw a psychiatrist in the past when her daughter in a car wreck. No chronic skin condition. PHYSICAL EXAMINATION: GENERAL: Revealed a middle-aged female, lying in bed. She appeared in no distress. VITAL SIGNS: Blood pressure is 120/60 on Levophed drip, pulse is 90. She is afebrile. HEENT: She is anicteric. Conjunctivae are pink. Mucous membranes moist. NECK: Veins are not distended. No carotid bruits. CHEST: Clear to auscultation. CARDIOVASCULAR: Regular rate and rhythm. ABDOMEN: Soft. She had mild tenderness. EXTREMITIES: Had no edema. Dorsalis pedis pulse 2+ bilaterally. SKIN: Warm and dry. NEUROLOGIC: Nonfocal. IMAGING: Her ECG on admission showed a sinus rhythm, occasional PVC, nonspecific T-wave changes. Her x-rays, she had a CT scan of the abdomen and pelvis that showed basilar infiltrates in her lung, possible pneumonia, some ascites, some evidence of colitis. Chest x-ray showed no acute abnormality. LABORATORY DATA: Sodium 131, BUN 14, creatinine 1.1. Her troponin is 0.33. Her white blood cell count is 12.0, hemoglobin 11.5. IMPRESSION AND RECOMMENDATIONS: 1. Possible acute coronary syndrome. The patient has frequent chest tightness and elevated troponin. Consider cardiac catheterization. 2. Previous coronary artery stent. The patient does take an aspirin a day. 3. History of hypertension. The patient has been on MERE inhibitor. 4. History of seizures. 5. Chronic back pain. The patient does take oxycodone. 6. Tobacco abuse. 7. History of colitis. <ELECTRONICALLY SIGNED> By: Solitario Joshi MD, [facility] 12/26/19 1449 0910 [id number] Joshi MD, [facility] /nt
--- NOTE | 2019-12-26 15:49 | NUR ---
ICU rounds: GI bleed, septic shock. Levo gtt. Per Dr, Pt will be here for a while. CM spoke with Pt's son via phone. Pt resides at home with son and DIL. Independent. DIL completes IADLs. No DME. No hx of HH or SNF. Pt son, Pt currently sees an REFRACTORY TECHNICIAN, in [place], names Izabela, Pt has been wanting to change to a different Dr/REFRACTORY TECHNICIAN. CM told son that closer to [place], CM will contact [facility], here in [place], to make Pt an appt with Sunil Harper NP, he accepts Pt's insurance. [facility] p:[phone] f:[phone]
--- NOTE | 2019-12-26 18:38 | NUR ---
PATIENT PROGESSING TOWARDS GOALS. REMAINS OFF PRESSORS. PAIN BETTER CONTROLLED. CDIFF IS NEGATIVE AND DISCUSSED WITH DR MIMS. ABDOMINAL SERIES COMPLETED. UNABLE TO LIE ON SIDES BUT MOVES IN BED. HAS LEAKAGE OF DULL RED STOOLS WITH VIGILANT SKIN CARE. FAMILY HAS BEEN UPDATED.
[2019-12-27] VITALS (21 sets, daily range): BP systolic 133–174; BP diastolic 74–115
[2019-12-27 06:10] LABS: HEMATOCRIT 25.8 % (37.0-47.0); MCH 28.3 pg (26.0-34.0); MCHC 34.6 g/dL (28.0-37.0); MCV 81.7 fL (80.0-100.0); MPV 6.8 fl. (7.2-11.1); RBC 3.16 mil/uL (4.20-5.00); RDW-CV 15.4 % (10.5-14.5); WBC 10.7 thou/uL (4.0-11.0)
[2019-12-27 06:12] LABS: HEMOGLOBIN 8.9 gm/dL (12.0-15.0)
[2019-12-27 06:34] LABS: ALBUMIN 1.9 g/dL (3.4-5.0); CALCIUM 7.6 mg/dL (8.5-10.1); CREATININE 0.9 mg/dL (0.6-1.3); MAGNESIUM 1.5 mg/dL (1.8-2.4); TOTAL BILIRUBIN 0.3 mg/dL (<0.1-1.0); TOTAL PROTEIN 4.7 g/dL (6.4-8.2)
--- NOTE | 2019-12-27 08:10 | NUR ---
ASSUMED PATIENT CARE AT 1900. ASSESSMENTS COMPLETED CHARTED. CARDIAC MONITORING IN PLACE. FALL PRECAUTIONS IN PLACE FOR PATIENT SAFETY. BED LOCKED AND IN LOWEST POSITION. CLWR.
--- NOTE | 2019-12-27 10:58 | NUR ---
0738 ASSUMED CARE OF PATIENT. PLEASE SEE DOCUMENTED ASSESSMENT. DR ZULETA HERE TO SEE PATIENT. CVP DISCONTINUED. INSTRUCTED ON INCREASING ACTIVITY
[2019-12-27 12:16] LABS: MAGNESIUM 1.8 mg/dL (1.8-2.4)
--- NOTE | 2019-12-27 12:31 | NUR ---
0900 PATIENT HAD EPISODE OF CODUMENTED SVT. CARDIOLOGY NOTIFIED
--- NOTE | 2019-12-27 12:32 | NUR ---
PATIENT WITH WHEEZING AND INCREASING OXYGEN DEMANDS. ABLE TO GET TO CHAIR FOR 20 MINUTES BUT EXHAUSTED. DIURETIC GIVEN ORDERED AND CHEST FILM RESULTS NOTED.NO CHANGE IN STOOLS
--- NOTE | 2019-12-27 18:28 | NUR ---
PATIENT WITH SOME PROGRESS TOWARDS GOALS. BETTER PAIN CONTROL BUT PATIENT IS ANXIOUS AND FIXATED ON POSSIBLEY HAVING SURGERY. BURST OF SVT THIS AM AND HAS BEEN TACHYCARDIC MOST OF SHIFT. STARTED ON BETA LEANNA. IVF DECREASED AND LASIX GIVEN IN RESPONSE TO WHEEZING AND INCREASING OXYGEN NEEDS. CURRENTLY ON 3LPM NASAL CANNULA BUT NOT WHEEZING. GOOD RESPONSE TO DIURETIC. REMAINS NPO. HAS CONTINUAL DULL RED LEAKAGE FROM RECTUM. FAMILY HAS CALLED AND PATIENT HAS BEEN ON PHONE WITH THEM MOST OF THE DAY. REMAINS NPO.
[2019-12-28] VITALS (16 sets, daily range): BP systolic 122–164; BP diastolic 67–108
[2019-12-28 06:33] LABS: ABSOLUTE BASOPHILS 0.1 thou/uL (0.0-0.2); ABSOLUTE EOSINOPHILS 0.1 thou/uL (0.0-0.7); ABSOLUTE LYMPHOCYTES 1.1 thou/uL (0.8-5.3); ABSOLUTE MONOCYTES 0.6 thou/uL (0.0-1.2); ABSOLUTE NEUTROPHILS 7.7 thou/uL (1.6-8.1); BASOPHILS 0.8 %; EOSINOPHILS 0.9 %; HEMATOCRIT 24.1 % (37.0-47.0); HEMOGLOBIN 8.3 gm/dL (12.0-15.0); LYMPHOCYTES 11.7 %; MCH 28.4 pg (26.0-34.0); MCHC 34.6 g/dL (28.0-37.0); MCV 82.2 fL (80.0-100.0); MONOCYTES 6.7 %; MPV 6.8 fl. (7.2-11.1); NUCLEATED RBCS 0 /100WBC; PLATELET COUNT* 184 thou/uL (150-400); POLYS 79.9 %; RBC 2.93 mil/uL (4.20-5.00); RDW-CV 15.2 % (10.5-14.5); WBC 9.6 thou/uL (4.0-11.0)
[2019-12-28 06:46] LABS: ALBUMIN 2.1 g/dL (3.4-5.0); CALCIUM 7.7 mg/dL (8.5-10.1); CREATININE 0.6 mg/dL (0.6-1.3); MAGNESIUM 1.5 mg/dL (1.8-2.4); PHOSPHORUS* 2.9 mg/dL (2.5-4.9); POTASSIUM 3.6 mmol/L (3.5-5.1); TOTAL BILIRUBIN 0.4 mg/dL (<0.1-1.0); TOTAL PROTEIN 5.3 g/dL (6.4-8.2)
[2019-12-28 06:48] LABS: PREALBUMIN 10.5 mg/dL (18.0-35.7)
--- NOTE | 2019-12-28 07:10 | NUR ---
ASSESSMENTS CHARTED. PATIENT EXPERIENCING INCREASED O2 DEMANDS, NOW REQUIRING TO BE ON 9 L HFNC. PATIENT NOT PROGRESSING WELL WITH INCENTIVE SPIROMETRY USE. PATIENT ANXIOUS BUT NOW REFUSING ADDITIONAL DOSES OF ATIVAN. FENTANYL FOR PAIN CONTROL WITH SOME RELIEF. SURGEON AT THE BEDSIDE WITH PATIENT.
[2019-12-28 08:22] LABS: BE -3.2 mmol/L (-2 to +3); PO2 79.4 mmHg (75.0-100.0); pH 7.399 (7.340-7.450)
--- NOTE | 2019-12-28 10:08 | NUR ---
0730 ASSUMED CARE OF PATIENT. SEE DOCUMENTED ASSESSMENT. PATIENT BATHED AND UP TO CHAIR. DR ZULETA HERE AND ORDERS NOTED. PATIENT IS ON 9LPM HIGH FLOW CANNULA.
--- NOTE | 2019-12-28 12:49 | NUR ---
NURSING ASSESSMENT DONE AT 0800 WAS DOCUMENTED BEING DONE AT 1048.
--- NOTE | 2019-12-28 13:58 | NUR ---
DR AVILES HERE AND PROGRESS NOTED. PT WILL BE ABLE TO START CLEAR LIQUIDS IF OK WITH DR ZULETA. CT ORDERS NOTED.
--- NOTE | 2019-12-28 17:43 | NUR ---
PATIENT HAS MADE SOME PROGRESS TOWARDS GOALS. WEANED HIGH FLOW CANNULA TO 7LPM. GOOD RESPONSE TO DIURESIS AND BREATHING TREATMENTS ADDED. UP TWICE TODAY INCLUDING WHEECHAIR TO CT FOR FILMS OF ABDOMEN IN CHEST. STARTED ON CLEAR LIQUIDS THIS EVENING BUT BECAME VERY FULL FEELING WITH BELCHING. NOW ON ENHANCED PRECAUTIONS TO RULE OUT CORONAVIRUS. PT SPOKE WITH FAMILY ON PHONE.
[2019-12-29] VITALS (23 sets, daily range): BP systolic 102–173; BP diastolic 68–103
--- NOTE | 2019-12-29 05:16 | NUR ---
ASSUMED CARE AT 1910H, ON NC AT 7LPM AND TOLERATED. SEEN ON BED ORIENTED. STILL WITH ABD PAIN, PRN MED GIVEN. TRIED TO DECREASE O2 TO 5LPM BUT PT DESATING, BACK TO 7LPM. NO VOMITING AND NO RECTAL DISCHARGE NOTED. NO BM IN MY SHIFT. PT ASKING WHEN SHE WILL CONTINUE HER 'SUBOXONE'. CONTINUE MONITORING AND TOWARD GOALS.
[2019-12-29 06:24] LABS: HEMATOCRIT 23.1 % (37.0-47.0); HEMOGLOBIN 8.1 gm/dL (12.0-15.0); MCH 28.5 pg (26.0-34.0); MCV 81.4 fL (80.0-100.0); MPV 7.2 fl. (7.2-11.1); NUCLEATED RBCS 0 /100WBC; PLATELET COUNT* 198 thou/uL (150-400); RBC 2.84 mil/uL (4.20-5.00); RDW-CV 14.9 % (10.5-14.5); WBC 7.8 thou/uL (4.0-11.0)
[2019-12-29 06:48] LABS: ALBUMIN 2.2 g/dL (3.4-5.0); CALCIUM 8.1 mg/dL (8.5-10.1); CREATININE 0.6 mg/dL (0.6-1.3); TOTAL BILIRUBIN 0.3 mg/dL (<0.1-1.0); TOTAL PROTEIN 5.8 g/dL (6.4-8.2)
[2019-12-29 06:49] LABS: POTASSIUM 2.8 mmol/L (3.5-5.1)
[2019-12-29 08:04] LABS: ABSOLUTE LYMPHOCYTES 0.6 thou/uL (0.8-5.3); ABSOLUTE MONOCYTES 0.2 thou/uL (0.0-1.2); ABSOLUTE NEUTROPHILS 6.9 thou/uL (1.6-8.1); PLATELET ESTIMATE ADEQUATE
--- NOTE | 2019-12-29 14:34 | NUR ---
ICU rounds: Pt tearful, covid pending and family cannot visit at this time. Pulm consulted for pulm edema, lasix started. K critically low this morning and has been corrected. Clinically doing better.
--- NOTE | 2019-12-29 18:34 | NUR ---
PATIENT REMAINS A&O X 4, PLEASANT AND COOPERATIVE WITH CARES. C/O PAIN BUT RELIEVED WITH PAIN MEDICATION X 1. PATIENT TEARFUL TODAY, STATES HER OF 40 YEARS HAS LEFT HER AND SHE IS LIVING WITH HER SON. PATIENT ALSO UPSET THAT SHE CANNOT HAVE ANY VISITORS BECAUSE SHE IS PENDING COVID. K+ WAS CRITICAL LOW THIS AM, REPLACED TODAY. PATIENT ENCOURAGED TO GET UP IN CHAIR IT WOULD HELP IMPROVE HER RESP STATUS, PATIENT REFUSED MULTIPLE TIMES. PATIENT WILL USE I.S. THAT IS AT BEDSIDE. PATIENT WILL ALSO COUGH AND DEEP BREATHE. C/O NAUSEA X 1 BUT NO VOMIT NOTED. NO FURTHER CONCERNS AT THIS TIME. WILL CONTINUE TO MONITOR AND CARE PER PLAN OF CARE.
[2019-12-30] VITALS (20 sets, daily range): BP systolic 106–143; BP diastolic 45–102
--- NOTE | 2019-12-30 04:51 | NUR ---
PATIENT PROGRESSING TOWARDS GOALS: PAIN EFFECTIVELY MANAGED WITH MEDICATION PER MAR AND DARK/QUIET ENVIRONMENT AND RELAXATION TECHNIQUES. PATIENT DENIES NAUSEA.
[2019-12-30 05:20] LABS: ABSOLUTE LYMPHOCYTES 0.9 thou/uL (0.8-5.3); ABSOLUTE MONOCYTES 0.6 thou/uL (0.0-1.2); ABSOLUTE NEUTROPHILS 6.4 thou/uL (1.6-8.1); BASOPHILS 0.1 %; HEMATOCRIT 22.6 % (37.0-47.0); HEMOGLOBIN 7.8 gm/dL (12.0-15.0); LYMPHOCYTES 10.9 %; MCH 28.2 pg (26.0-34.0); MCHC 34.5 g/dL (28.0-37.0); MCV 81.6 fL (80.0-100.0); NUCLEATED RBCS 0 /100WBC; PLATELET COUNT* 244 thou/uL (150-400); RBC 2.77 mil/uL (4.20-5.00); RDW-CV 15.2 % (10.5-14.5); WBC 7.9 thou/uL (4.0-11.0)
[2019-12-30 05:40] LABS: PREALBUMIN 11.5 mg/dL (18.0-35.7)
[2019-12-30 05:50] LABS: ALBUMIN 2.2 g/dL (3.4-5.0); CALCIUM 8.3 mg/dL (8.5-10.1); CREATININE 0.9 mg/dL (0.6-1.3); MAGNESIUM 1.8 mg/dL (1.8-2.4); POTASSIUM 3.6 mmol/L (3.5-5.1); TOTAL BILIRUBIN 0.3 mg/dL (<0.1-1.0); TOTAL PROTEIN 5.8 g/dL (6.4-8.2)
--- NOTE | 2019-12-30 10:31 | NUR ---
0740 ASSUMED CARE OF PATIENT. PLEASE SEE DOCUMENTED ASSESSMENT. DR ZULETA HERE TO SEE PATIENT. PLAN IS TO MOVE PATIENT OUT OF ICU LATER TODAY IF RESPIRATORY STATE REMAINS STABLE. UP TO CHAIR
--- NOTE | 2019-12-30 12:09 | NUR ---
ICU rounds: Tele status. Covid negative. O2 requirements are down. [place] out. PT/OT ordered. Advanced liquids.
--- NOTE | 2019-12-30 13:11 | NUR ---
PATIENT IS NOW TELE STATUS. HAS VOIDED POST CATHETER REMOVAL
--- NOTE | 2019-12-30 15:34 | 2DMMODE ---
[place] [address] 2 D/M-MODE ECHOCARDIOGRAM Name: CHANNING GOMEZ Room: [address] ADM IN M.R.#: [id number] Admission: 12/25/19 Attend Phys: Evans urbina Sa Discharge: Date of : 58 Date of Service: 12/30/19 1533 Report #: [id number] THIS REPORT FOR: cc: NATHALIE - Celine family physician/PCP NATHALIE - Celine family physician/PCP Jose Guadalupe Johns MD [facility] ~ APPROVED REPORT Study performed: 12/30/2019 09:43:28 EXAM: Comprehensive 2D, Doppler, and color-flow Echocardiogram Patient Location: In-Patient BSA: 1.61 HR: 93 bpm BP: 163/96 mmHg Other Information Study Quality: Good Indications Chest Pain 2D Dimensions IVSd: 14.10 (7-11mm) LVOT Diam: 17.41 (18-24mm) LVDd: 35.75 mm PWd: 10.98 (7-11mm) Ascending Ao: 28.22 (22-36mm) LVDs: 23.80 (25-40mm) Aortic Root: 26.22 mm Volumes Left Atrial Volume (Systole) LA ESV Index: 22.30 mL/m2 Aortic Valve AoV Peak Addy.: 1.56 m/s AO Peak Gr.: 9.79 mmHg LVOT Max P.23 mmHg AO Mean Gr.: 6.21 mmHg LVOT Mean P.45 mmHg LVOT Max V: 1.34 m/s AO V2 VTI: 19.64 cm LVOT Mean V: 0.85 m/s GABRIEL (VTI): 2.37 cm2 LVOT V1 VTI: 19.54 cm Mitral Valve E/A Ratio: 0.69 [place] [address] 2 D/M-MODE ECHOCARDIOGRAM Name: CHANNING GOMEZ Room: [address] IN .R.#: [id number] Admission: 12/25/19 Attend Phys: Evans urbina Sa Discharge: Date of : 58 Date of Service: 12/30/19 1533 Report #: [id number] MV Decel. Time: 134.68 ms MV E Max Addy.: 0.92 m/s MV PHT: 39.06 ms MVA (PHT): 5.63 cm2 TDI E/Lateral E': 15.33 E/Medial E': 11.50 Medial E' Addy.: 0.08 m/s Lateral E' Addy.: 0.06 m/s Pulmonary Valve PV Peak Addy.: 1.05 m/s PV Peak Gr.: 4.38 mmHg Tricuspid Valve RAP Estimate: 5.00 mmHg TR Peak Gr.: 33.00 mmHg RVSP: 38.00 mmHg PA Pressure: 38.00 mmHg Left Ventricle The left ventricle is normal size. There is normal LV segmental wall motion. There is normal left ventricular wall thickness. Left ventricular systolic function is normal. The left ventricular ejection fraction is within the normal range. LVEF is 65-70%. Grade I - abnormal relaxation pattern. Right Ventricle The right ventricle is normal size. The right ventricular systolic function is normal. Atria Left atrium is mildly dilated. The right atrium size is normal. Aortic Valve Mild aortic valve sclerosis. No aortic regurgitation is present. There is no aortic valvular stenosis. Mitral Valve The mitral valve is normal in structure. There is no mitral valve regurgitation noted. No evidence of mitral valve stenosis. Tricuspid Valve The tricuspid valve is normal in structure. Mild tricuspid regurgitation[place] [address] 2 D/M-MODE ECHOCARDIOGRAM Name: CHANNING GOMEZ Room: [address] IN [facility]#: [id number] Admission: 12/25/19 Attend Phys: Evans urbina Sa Discharge: Date of : 58 Date of Service: 12/30/19 1533 Report #: [id number] The pulmonary valve is normal in structure. There is no pulmonic valvular regurgitation. Great Vessels The aortic root is normal in size. IVC is normal in size and collapses >50% with inspiration. Pericardium There is no pericardial effusion. <Conclusion> The left ventricle is normal size. There is normal left ventricular wall thickness. Left ventricular systolic function is normal. The left ventricular ejection fraction is within the normal range. LVEF is 65-70%. Grade I - abnormal relaxation pattern. The right ventricle is normal size. Left atrium is mildly dilated. The right atrium size is normal. Mild aortic valve sclerosis. No aortic regurgitation is present. There is no aortic valvular stenosis. The mitral valve is normal in structure. The tricuspid valve is normal in structure. Mild tricuspid regurgitation. IVC is normal in size and collapses >50% with inspiration. There is no pericardial effusion. There is normal LV segmental wall motion. <ELECTRONICALLY SIGNED> By: Jose Guadalupe Johns MD, FACC 12/30/19 1533 1533 1533 Jose Guadalupe Johns MD, FACC /INF
--- NOTE | 2019-12-30 16:24 | NUR ---
PATIENT IS PROGRESSING TOWARDS GOALS. PATIENT IS TELEMETRY STATUS. OXYGEN IS AT 2LPM NASAL CANNULA. DIET ADVANCED TO SOFT LOW FIBER. JAQUEZ REMOVED AND IS VOIDING. UP TO CHAIR SEVERAL TIMES AND WALKED WITH PHYSICAL THERAPY. NOW VISITING WITH BROTHER. PLAN IS TO MOVE TO TELEMETRY ROOM.
--- NOTE | 2019-12-30 16:53 | NUR ---
REPORT CALLED TO JANIE VERDUGO
[2019-12-31 05:14] VITALS: BP 130/79
--- NOTE | 2019-12-31 05:55 | NUR ---
PATIENT NOT PROGRESSING TOWARDS GOALS: PATIENT STILL HAVING ABDOMINAL PAIN AND A FEW EPISODES OF DIARRHEA. VERY TEARFUL THIS SHIFT AND ANXIOUS, REPORTING SHE "FEELS LIKE SHE IS REGRESSING." ENCOURAGEMENT PROVIDED. CALL LIGHT WITHIN REACH
[2019-12-31 06:08] LABS: MCH 28.3 pg (26.0-34.0); MCHC 34.7 g/dL (28.0-37.0); MCV 81.5 fL (80.0-100.0); MPV 6.7 fl. (7.2-11.1); RBC 2.42 mil/uL (4.20-5.00); RDW-CV 15.1 % (10.5-14.5); WBC 7.5 thou/uL (4.0-11.0)
[2019-12-31 06:15] LABS: HEMATOCRIT 19.7 % (37.0-47.0); HEMOGLOBIN 6.8 gm/dL (12.0-15.0)
[2019-12-31 06:30] LABS: CREATININE 0.9 mg/dL (0.6-1.3); MAGNESIUM 1.8 mg/dL (1.8-2.4); POTASSIUM 3.4 mmol/L (3.5-5.1); TOTAL BILIRUBIN 0.3 mg/dL (<0.1-1.0)
[2019-12-31 06:39] LABS: BASOPHILS 0.2 %
[2019-12-31 06:40] LABS: ABSOLUTE EOSINOPHILS 0.1 thou/uL (0.0-0.7); ABSOLUTE LYMPHOCYTES 1.2 thou/uL (0.8-5.3); ABSOLUTE MONOCYTES 0.5 thou/uL (0.0-1.2); ABSOLUTE NEUTROPHILS 5.5 thou/uL (1.6-8.1); LYMPHOCYTES 16.8 %; MCH 28.3 pg (26.0-34.0); MCHC 34.8 g/dL (28.0-37.0); MCV 81.4 fL (80.0-100.0); MONOCYTES 7.2 %; NUCLEATED RBCS 0 /100WBC; PLATELET COUNT* 258 thou/uL (150-400); POLYS 74.8 %; RBC 2.41 mil/uL (4.20-5.00); RDW-CV 15.5 % (10.5-14.5); WBC 7.4 thou/uL (4.0-11.0)
[2019-12-31 06:51] LABS: HEMATOCRIT 19.6 % (37.0-47.0); HEMOGLOBIN 6.8 gm/dL (12.0-15.0)
--- NOTE | 2019-12-31 07:10 | NUR ---
CHANGE OF SHIFT BEDSIDE REPORT GIVEN PATIENT SEEN AT BEDSIDE, IN BED ASLEEP ASSUMED PATIENT CARE
[2019-12-31 08:00] VITALS: BP 154/87
[2019-12-31 10:23] VITALS: BP 124/72; BP 130/60; BP 130/70
--- NOTE | 2019-12-31 11:35 | NUR ---
Per Dr, O2 needs are improving. Hbg is down today. Consults following. Anticipate dc on Sunday. Following.
[2019-12-31 12:10] VITALS: BP 135/82
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
[2019-12-31 16:43] LABS: ABSOLUTE EOSINOPHILS 0.4 thou/uL (0.0-0.7); ABSOLUTE LYMPHOCYTES 1.8 thou/uL (0.8-5.3); ABSOLUTE NEUTROPHILS 8.1 thou/uL (1.6-8.1); BASOPHILS 0.4 %; EOSINOPHILS 3.5 %; HEMATOCRIT 28.7 % (37.0-47.0); LYMPHOCYTES 17.7 %; MCH 28.1 pg (26.0-34.0); MCHC 34.5 g/dL (28.0-37.0); MCV 81.5 fL (80.0-100.0); MONOCYTES 0.3 %; MPV 6.9 fl. (7.2-11.1); NUCLEATED RBCS 0 /100WBC; PLATELET COUNT* 308 thou/uL (150-400); POLYS 78.1 %; RBC 3.52 mil/uL (4.20-5.00); RDW-CV 15.4 % (10.5-14.5); WBC 10.4 thou/uL (4.0-11.0)
[2019-12-31 16:44] LABS: HEMOGLOBIN 9.9 gm/dL (12.0-15.0)
[2019-12-31 16:52] LABS: CALCIUM 8.5 mg/dL (8.5-10.1); CREATININE 0.9 mg/dL (0.6-1.3); MAGNESIUM 1.7 mg/dL (1.8-2.4); POTASSIUM 4.2 mmol/L (3.5-5.1)
[2019-12-31 17:05] VITALS: BP 142/95
[2019-12-31 19:50] VITALS: BP 123/68
[2020-01-01] VITALS (7 sets, daily range): BP systolic 98–149; BP diastolic 68–105
[2020-01-01 05:48] LABS: ABSOLUTE LYMPHOCYTES 1.5 thou/uL (0.8-5.3); ABSOLUTE MONOCYTES 0.4 thou/uL (0.0-1.2); BASOPHILS 0.4 %; MPV 6.9 fl. (7.2-11.1); NUCLEATED RBCS 0 /100WBC; WBC 8.8 thou/uL (4.0-11.0)
[2020-01-01 05:50] LABS: ABSOLUTE EOSINOPHILS 0.5 thou/uL (0.0-0.7); ABSOLUTE NEUTROPHILS 6.5 thou/uL (1.6-8.1); EOSINOPHILS 5.4 %; HEMATOCRIT 24.9 % (37.0-47.0); HEMOGLOBIN 8.6 gm/dL (12.0-15.0); LYMPHOCYTES 16.7 %; MCH 28.3 pg (26.0-34.0); MCHC 34.6 g/dL (28.0-37.0); MCV 81.9 fL (80.0-100.0); MONOCYTES 4.2 %; PLATELET COUNT* 274 thou/uL (150-400); POLYS 73.3 %; RBC 3.04 mil/uL (4.20-5.00)
[2020-01-01 06:04] LABS: ALBUMIN 2.3 g/dL (3.4-5.0); CALCIUM 7.9 mg/dL (8.5-10.1); CREATININE 0.7 mg/dL (0.6-1.3); MAGNESIUM 2.1 mg/dL (1.8-2.4); POTASSIUM 3.5 mmol/L (3.5-5.1); TOTAL BILIRUBIN 0.3 mg/dL (<0.1-1.0); TOTAL PROTEIN 5.5 g/dL (6.4-8.2)
--- NOTE | 2020-01-01 06:49 | NUR ---
PATIENT PROGRESSING TOWARDS GOALS: PAIN MANAGED WITH ORAL MEDICATION X1 AND RELAXATION TECHNIQUES. PATIENT RESTED WELL THROUGHOUT SHIFT. SHE IS EAGER TO GO HOME.
--- NOTE | 2020-01-01 11:11 | NUR ---
Nutrition: Pt admitted with GIB. Colitis was seen. Wt: 126#. Alb 2.3, prealb 16.1. Fiber restricted diet ordered. +BMs. Pt stated "I ate real good this morning." She is feeling much better. Tolerating diet. Likely discharge tomorrow. Pt was wanting to know how to eat better. RD provided her with handouts and info on the Plate Method for general healthy eating. Consider mild nutrition risk.
--- NOTE | 2020-01-01 13:47 | NUR ---
CM spoke with Pt, CM informed Pt that she should be medically stable to dc in a few days. JOSE scheduled PCP appt for Pt with Sunil Harper NP (Russ) at [facility] for 01/12/20 @1040am, CM put appt in dc summary. Jose faxed clinical info to [phone]
--- NOTE | 2020-01-01 19:00 | NUR ---
ASSUMED PT CARE AT 0730. ASSESSMENT COMPLETED CHARTED. ABLE TO MAKE NEEDS KNOWN. UP AD STEPHIE TO BSC. C/O ABDOMINAL PAIN AND GAVE PRN PAIN MEDS PER EMAR. RESTING IN BED THE REST OF THE DAY. NO MAJOR EVENTS THIS SHIFT. WILL CONTINUE TO MONITOR.
[2020-01-02] VITALS: BP 114/82
[2020-01-02 04:00] VITALS: BP 122/95
--- NOTE | 2020-01-02 06:34 | NUR ---
NO ACUTE CHANGES THROUGHOUT SHIFT. SEE CHARTING FOR MORE DETAILS.
[2020-01-02 07:10] LABS: HEMATOCRIT 24.9 % (37.0-47.0); HEMOGLOBIN 8.4 gm/dL (12.0-15.0); MCH 27.8 pg (26.0-34.0); MCHC 33.8 g/dL (28.0-37.0); MCV 82.2 fL (80.0-100.0); MPV 7.1 fl. (7.2-11.1); NUCLEATED RBCS 0 /100WBC; PLATELET COUNT* 309 thou/uL (150-400); RBC 3.02 mil/uL (4.20-5.00); RDW-CV 15.3 % (10.5-14.5); WBC 7.3 thou/uL (4.0-11.0)
[2020-01-02 07:25] LABS: ALBUMIN 2.2 g/dL (3.4-5.0); CALCIUM 7.8 mg/dL (8.5-10.1); CREATININE 0.8 mg/dL (0.6-1.3); MAGNESIUM 1.9 mg/dL (1.8-2.4); TOTAL BILIRUBIN 0.3 mg/dL (<0.1-1.0); TOTAL PROTEIN 5.5 g/dL (6.4-8.2)
[2020-01-02 08:00] VITALS: BP 121/89
[2020-01-02 08:21] LABS: ABSOLUTE EOSINOPHILS 0.5 thou/uL (0.0-0.7); ABSOLUTE LYMPHOCYTES 1.8 thou/uL (0.8-5.3); ABSOLUTE MONOCYTES 0.3 thou/uL (0.0-1.2); ABSOLUTE NEUTROPHILS 4.7 thou/uL (1.6-8.1); ATYPICAL LYMPHS 2 %; METAMYELOCYTES 3 %; PLATELET ESTIMATE ADEQUATE
[2020-01-02 13:51] VITALS: BP 109/81
[2020-01-02] MEDS ORDERED: LEVAQUIN 500 M500 M1 PO (13:53)
[2020-01-02] MEDS ORDERED: ACIDOPHILUS1 EAC4 PO (13:53)
[2020-01-02] MEDS ORDERED: LASIX 20 MG TAB20 MG PO (14:31)
--- NOTE | 2020-01-02 18:10 | NUR ---
ASSUMED PT CARE AT 0730. ASSESSMENT COMPLETED CHARTED. ABLE TO MAKE NEEDS KNOWN. UP AD STEPHIE TO BSC. C/O PAIN AND GAVE PRN PAIN MEDS PER EMAR. DISCHARGE APPROVED AND WENT OVER WITH PT AND DAUGHTER. IV AND HEART MONITOR REMOVED. ALL BELONGINGS TAKEN WITH PT WHEN DISCHARGED AT AROUND 1800. NO COMMENTS, QUESTIONS, OR CONCERNED.
--- NOTE | 2020-01-11 08:28 | CON ---
[address] [address] CONSULTATION Name: JASONCHANNINGJORGE NOLAN Room: [address] IN .R.#: [id number] Admission: 12/25/19 Attend Phys: Evans Mitchell Discharge: 01/02/20 Date of : 58 Report #: [id number] THIS REPORT FOR: //name// cc: NATHALIE Berger family physician/PCP NATHALIE Berger family physician/PCP ~ THIS REPORT FOR: //name// CC: NATHALIE physician/PCP Evans Bryant DATE OF SERVICE: 12/25/2019 HISTORY OF PRESENT ILLNESS: This is a pleasant 59-year-old female with past medical history significant for coronary artery disease and irritable bowel syndrome with diarrhea who is presenting with abdominal pain, nausea and vomiting for the last 2 days. The patient reports progressively feeling weak and lethargic and had an episode of dizziness and presyncope when she attempted to go to the bathroom. The patient was brought in with diagnosis of septic shock as well as infectious colitis. The patient reports 4-5 episodes of diarrhea prior to hospitalization. Denies recent travel or sick contacts. The patient had an EGD and colonoscopy performed last year, both of which were unremarkable. The colonoscopy showed some melanosis coli. PAST MEDICAL HISTORY: Coronary artery disease, irritable bowel syndrome. PAST SURGICAL HISTORY: Hysterectomy, back surgeries in the remote past. SOCIAL HISTORY: The patient denies recreational drug use or alcohol use, quit smoking in the past. FAMILY HISTORY: No family history of colon cancer or Ordonez related neoplasia. REVIEW OF SYSTEMS: Comprehensive 10-point review of systems is negative except for what was mentioned in the HPI. PHYSICAL EXAMINATION: VITAL SIGNS: Pulse rate 123, respiratory rate 28, blood pressure 130/94, pulse ox 97%. GENERAL: The patient is alert, awake, appears weak. HEENT: Pupils are equal, round, reactive to light and accommodation. Mucous membranes are moist. There is no congestion. LUNGS: Clear to auscultation bilaterally. CARDIOVASCULAR: Rate and rhythm regular, S1, S2 present. ABDOMEN: Soft. Diffuse tenderness to palpation all over the abdomen. EXTREMITIES: Warm, well perfused. [place] [address] CONSULTATION Name: CHANNING GOEMZ Room: [address] IN [facility].#: [id number] Admission: 12/25/19 Attend Phys: Evans Mitchell Discharge: 01/02/20 Date of : 58 Report #: [id number] SKIN: Warm and dry. LABORATORY AND DIAGNOSTIC DATA: Hemoglobin 15.8, hematocrit 47.2, platelet count 178, WBC count 12.5. Sodium 130, potassium 5.1, chloride 103, bicarbonate 18, BUN 16, creatinine 1.2, alkaline phosphatase 503, AST 25, ALT 15. Stool culture, C. diff pending. Abdomen and pelvis CT: Multiple dilated fluid filled loops of small bowel and colon with question of small bowel demonstrating normal appearance. ASSESSMENT AND PLAN: Pleasant 59-year-old female presenting with septic shock and possible colitis. Due to her septic shock, I suspect this may be an infectious colitis. I would recommend treatment empirically for C. diff related colitis. Place the patient on vancomycin 500 mg p.o. 4 times a day. Continue supportive treatment as you are. The GI service will continue to follow. <ELECTRONICALLY SIGNED> By: González Moncada MD 01/11/20 0828 2243 [id number] Moncada MD /nt
== END 2020-01-02 17:59 | disposition home or self-care (01) | DRG 871 ==
LOC: M.ERS 01:50 → M.ICU 04:45 → M.2W 12-30 17:00
PROVIDERS: Internal Medicine; Internal Medicine Critical Care Medicine; ADMIT Family Medicine; ATTEND Family Medicine
PROC: 02HV33Z Insertion of Infusion Device into Superior Vena Cava, Percutaneous Approach (ICD-10-PCS; principal; 2019-12-25)
PROC: 30233N1 Transfusion of Nonautologous Red Blood Cells into Peripheral Vein, Percutaneous Approach (ICD-10-PCS; 2019-12-31)
DX: A41.9 Sepsis, unspecified organism (principal); J96.01 Acute respiratory failure with hypoxia; J18.9 Pneumonia, unspecified organism; R65.21 Severe sepsis with septic shock; K50.90 Crohn's disease, unspecified, without complications; J44.1 Chronic obstructive pulmonary disease with (acute) exacerbation; A09 Infectious gastroenteritis and colitis, unspecified; E87.1 Hypo-osmolality and hyponatremia; K92.2 Gastrointestinal hemorrhage, unspecified; K56.7 Ileus, unspecified; N17.9 Acute kidney failure, unspecified; D62 Acute posthemorrhagic anemia; I47.1 Supraventricular tachycardia; M19.90 Unspecified osteoarthritis, unspecified site; M54.9 Dorsalgia, unspecified; E87.70 Fluid overload, unspecified; F32.9 Major depressive disorder, single episode, unspecified; I25.10 Atherosclerotic heart disease of native coronary artery without angina pectoris; G89.4 Chronic pain syndrome; F41.1 Generalized anxiety disorder; F43.10 Post-traumatic stress disorder, unspecified; G40.909 Epilepsy, unspecified, not intractable, without status epilepticus; K59.09 Other constipation; Z20.828 Contact with and (suspected) exposure to other viral communicable diseases; Z79.899 Other long term (current) drug therapy; Z95.5 Presence of coronary angioplasty implant and graft; I25.2 Old myocardial infarction; Z90.710 Acquired absence of both cervix and uterus; Z86.14 Personal history of Methicillin resistant Staphylococcus aureus infection; Z88.1 Allergy status to other antibiotic agents; Z88.2 Allergy status to sulfonamides; Z88.8 Allergy status to other drugs, medicaments and biological substances; Z87.891 Personal history of nicotine dependence; Z82.49 Family history of ischemic heart disease and other diseases of the circulatory system

== ENCOUNTER 2020-01-12 06:13 | Inpatient (IN) | payer MEDICAID ==
[~2020-01-12] VITALS: Ht 152.4 cm; Wt 54.4 kg
[2020-01-12] VITALS (7 sets, daily range): BP systolic 95–134; BP diastolic 62–81
--- NOTE | ~2020-01-12 | PROC ---
[address] [address] PROCEDURE REPORT Name: CHANNING GOMEZ Room: [address] IN ..#: [id number] Admission: 01/12/20 Attend Phys: Casandra Blanton Discharge: Date of : 58 Report #: [id number] THIS REPORT FOR: //name// cc: FAM - No family physician/PCP FAM - No family physician/PCP ~ THIS REPORT FOR: //name// For GI report, please see the Provation report in Perceptive 7 content. By: 0650Medical Records Staff NICHO /DAYTON
[~2020-01-12 06:13] MED LIST changes: +ACIDOPHILUS1 EAC4 PO; +LASIX 20 MG TAB20 MG PO; +LEVAQUIN 500 M500 M1 PO
[2020-01-12 06:37] LABS: URINE BILIRUBIN NEGATIVE (Negative); URINE BLOOD 3+ (Negative); URINE CLARITY CLEAR; URINE COLOR YELLOW; URINE GLUCOSE-RANDOM NEGATIVE (Negative); URINE KETONES NEGATIVE (Negative); URINE LEUKOCYTES-REFLEX NEGATIVE (Negative); URINE NITRITE-REFLEX NEGATIVE (Negative); URINE PROTEIN NEGATIVE (Negative); URINE SPECIFIC GRAVITY <= 1.005 (1.005-1.030); URINE UROBILINOGEN 0.2 E.U./dl (0.2-1.0)
[2020-01-12 06:42] LABS: ABSOLUTE EOSINOPHILS 0.1 thou/uL (0.0-0.7); ABSOLUTE LYMPHOCYTES 1.5 thou/uL (0.8-5.3); ABSOLUTE MONOCYTES 0.6 thou/uL (0.0-1.2); ABSOLUTE NEUTROPHILS 3.4 thou/uL (1.6-8.1); BASOPHILS 0.4 %; EOSINOPHILS 1.4 %; HEMATOCRIT 26.4 % (37.0-47.0); HEMOGLOBIN 8.9 gm/dL (12.0-15.0); LYMPHOCYTES 27.4 %; MCH 27.7 pg (26.0-34.0); MCHC 33.6 g/dL (28.0-37.0); MCV 82.3 fL (80.0-100.0); MONOCYTES 10.9 %; MPV 6.5 fl. (7.2-11.1); NUCLEATED RBCS 0 /100WBC; PLATELET COUNT* 478 thou/uL (150-400); POLYS 59.9 %; RDW-CV 14.9 % (10.5-14.5); WBC 5.6 thou/uL (4.0-11.0)
[2020-01-12 06:47] LABS: RENAL EPITHELIAL CELLS 4-10 Moderate /LPF (None Seen)
[2020-01-12 06:48] LABS: BACTERIA-REFLEX None Seen /HPF (None Seen); CASTS None Seen /LPF (None Seen); CRYSTALS None Seen /LPF (None Seen); MUCUS None Seen strn/LPF (None Seen); SQUAMOUS 0-3 Few /LPF (0-3); URINE RBC >20 Many /HPF (0-2); URINE WBC-REFLEX None Seen /HPF (0-5)
[2020-01-12 06:51] LABS: CALCIUM 8.1 mg/dL (8.5-10.1); CREATININE 1.4 mg/dL (0.6-1.3); POTASSIUM 4.3 mmol/L (3.5-5.1)
[2020-01-12 06:53] LABS: INR 1.1; PROTIME 11.2 Seconds (9.20-11.50)
[2020-01-12 06:55] LABS: ALBUMIN 2.7 g/dL (3.4-5.0); TOTAL BILIRUBIN 0.2 mg/dL (<0.1-1.0); TOTAL PROTEIN 6.4 g/dL (6.4-8.2)
[2020-01-12 10:50] LABS: % SATURATION 12 % (20-39); IRON 28 ug/dL (50-175)
--- NOTE | 2020-01-12 15:41 | EKG ---
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1960 Requested By: Eva Barr Order Number: [id number] MD: Jose Guadalupe Johns Measurements Intervals [place] Rate: 80 P: 33 AR: 143 QRS: 2 QRSD: 80 T: 35 QT: 367 QTc: 424 Interpretive Statements Sinus rhythm Compared to ECG 12/25/2019 02:20:47 Sinus tachycardia no longer present Ventricular premature complex(es) no longer present Early repolarization no longer present Electronically Signed On 01-12-2020 15:40:58 CDT by Jose Guadalupe Johns [email or web address] <ELECTRONICALLY SIGNED> By: Jose Guadalupe Johns MD, [facility] 01/12/20 1540 0642 0642 Jose Guadalupe Johns MD, FAC /EPI
[2020-01-13 05:09] LABS: MCHC 34.2 g/dL (28.0-37.0); MCV 81.7 fL (80.0-100.0); MPV 6.3 fl. (7.2-11.1); RBC 2.19 mil/uL (4.20-5.00); RDW-CV 15.1 % (10.5-14.5); WBC 4.6 thou/uL (4.0-11.0)
[2020-01-13 05:10] VITALS: BP 102/57
[2020-01-13 05:18] LABS: HEMATOCRIT 17.9 % (37.0-47.0); HEMOGLOBIN 6.1 gm/dL (12.0-15.0)
[2020-01-13 05:19] LABS: ALBUMIN 1.9 g/dL (3.4-5.0); CALCIUM 7.4 mg/dL (8.5-10.1); CREATININE 0.8 mg/dL (0.6-1.3); MAGNESIUM 1.6 mg/dL (1.8-2.4); PHOSPHORUS* 3.3 mg/dL (2.5-4.9); POTASSIUM 3.4 mmol/L (3.5-5.1)
[2020-01-13 07:53] VITALS: BP 124/82
[2020-01-13 10:32] VITALS: BP 104/72; BP 106/73; BP 115/68
[2020-01-13 12:55] VITALS: BP 124/82
[2020-01-13 16:52] LABS: HEMOGLOBIN 8.5 gm/dL (12.0-15.0)
[2020-01-13 20:00] VITALS: BP 95/59
[2020-01-14] VITALS (8 sets, daily range): BP systolic 82–115; BP diastolic 38–65
[2020-01-14 04:48] LABS: HEMATOCRIT 21.4 % (37.0-47.0); HEMOGLOBIN 7.1 gm/dL (12.0-15.0); MCHC 33.3 g/dL (28.0-37.0); MCV 83.9 fL (80.0-100.0); MPV 6.4 fl. (7.2-11.1); RBC 2.56 mil/uL (4.20-5.00); WBC 3.9 thou/uL (4.0-11.0)
[2020-01-14 04:59] LABS: CALCIUM 7.4 mg/dL (8.5-10.1); CREATININE 0.8 mg/dL (0.6-1.3); MAGNESIUM 1.7 mg/dL (1.8-2.4); POTASSIUM 3.9 mmol/L (3.5-5.1)
[2020-01-14 09:11] LABS: HEMATOCRIT 24.7 % (37.0-47.0); HEMOGLOBIN 8.2 gm/dL (12.0-15.0)
--- NOTE | 2020-01-14 10:23 | CON ---
[address] [address] CONSULTATION Name: CHANNING GOMEZ Room: [address] IN .R.#: [id number] Admission: 01/12/20 Attend Phys: Casandra Blanton Discharge: Date of : 58 Report #: [id number] THIS REPORT FOR: //name// cc: NATHALIE Berger family physician/PCP NATHALIE - No family physician/PCP ~ THIS REPORT FOR: //name// CC: [facility] physician/PCP Sunil Dorsey DATE OF SERVICE: 01/12/2020 HISTORY OF PRESENT ILLNESS: This is a pleasant 59-year-old female with past medical history significant for ischemic colitis, C. diff colitis, history of seizures, depression, coronary artery disease, who is presenting for evaluation of hematochezia. The patient reports passing blood and blood clots per rectum for the last 2 days. She reports associated abdominal pain and cramps. The patient was diagnosed with ischemic colitis in the past. She continues to be constipated at baseline. She reports she only takes Metamucil and has one bowel movement every 4-5 days. She denies any nausea, vomiting, or diarrhea. PAST MEDICAL HISTORY: Seizures, ischemic colitis, anxiety, depression, coronary artery disease, C. diff. PAST SURGICAL HISTORY: None. SOCIAL HISTORY: The patient denies smoking, alcohol or recreational drug use. FAMILY HISTORY: Mother had colon cancer and aunt had gastric cancer. REVIEW OF SYSTEMS: Comprehensive 10-point review of systems is negative except for what was mentioned in the HPI. PHYSICAL EXAMINATION: VITAL SIGNS: Temperature 36.6, pulse rate 74, respirations 16, blood pressure 104/71, pulse ox 94% on room air. GENERAL: The patient is alert, awake, oriented x 3. HEENT: Pupils are equal, round, reactive to light and accommodation. Mucous membranes are moist. There is no congestion. LUNGS: Clear to auscultation bilaterally. CARDIOVASCULAR: Rate and rhythm regular, S1, S2 present. ABDOMEN: Soft. There is no distention, guarding or rigidity. EXTREMITIES: Warm, well perfused. There is no edema. SKIN: Warm and dry. LABORATORY DATA: Hemoglobin 8.9, hematocrit 26.4, platelet count 478, [place] [address] CONSULTATION Name: CHANNING GOMEZ Room: [address]#: [id number] Admission: 01/12/20 Attend Phys: Casandra Blanton Discharge: Date of : 58 Report #: [id number] 5.6. INR 1.1. Sodium 140, potassium 3.4, chloride 107, bicarbonate 24, BUN 3, creatinine 0.8. IMAGING: Abdomen and pelvis CT, this demonstrates severe rectal wall thickening and represents residual infection or inflammatory colitis. Descending and sigmoid colon, which demonstrated normal bowel. A large amount of stool seen throughout the colon. ASSESSMENT AND PLAN: Pleasant 59-year-old female with history outlined above and the history of recurrent ischemic colitis presents with abdominal pain and hematochezia. The patient appears to have another bout of ischemic colitis. We will proceed with colonoscopy for a diagnosis. After this, the patient will need to be on long-term management for her chronic idiopathic constipation. Other recommendations will be based on results of the colonoscopy. <ELECTRONICALLY SIGNED> By: González Moncada MD 01/14/20 1023 1544 1952González Moncada MD /nt
[2020-01-14 14:19] LABS: HEMATOCRIT 23.1 % (37.0-47.0); HEMOGLOBIN 7.6 gm/dL (12.0-15.0)
[2020-01-15 04:54] VITALS: BP 111/68
[2020-01-15 04:57] LABS: HEMATOCRIT 21.9 % (37.0-47.0); HEMOGLOBIN 7.5 gm/dL (12.0-15.0); MCH 28.4 pg (26.0-34.0); MCHC 34.2 g/dL (28.0-37.0); MCV 83.1 fL (80.0-100.0); MPV 6.8 fl. (7.2-11.1); RBC 2.63 mil/uL (4.20-5.00); RDW-CV 15.1 % (10.5-14.5); WBC 3.5 thou/uL (4.0-11.0)
[2020-01-15 07:40] VITALS: BP 138/48
[2020-01-15] MEDS ORDERED: LINZESS145 MCG PO ×2 (10:14→10:15)
[2020-01-15] MEDS ORDERED: MIRALAX17 GM PO (10:14)
[2020-01-15] MEDS ORDERED: FLAGYL500 M1 PO (10:14)
[2020-01-15] MEDS ORDERED: CIPRO500 MG PO (10:14)
[2020-01-15 12:00] VITALS: BP 120/64
[2020-01-15 14:20] VITALS: BP 120/64
--- NOTE | 2020-01-15 15:13 | PATH ---
[address] [address] PATHOLOGY RPT PROCEDURE Name: NANETTE FITZGERALD Room: [address] IN M.R.#: [id number] Admission: 01/12/20 Date of : 58 Discharge: Report #: [id number] Path Case #: [id number] [facility] Accession Number: [id number] . 01 Material submitted: . rectum - RECTAL BIOPSIES . 01 Clinical history: . R/O JAMAL, rectal ischemia . 02 Diagnosis: Rectal biopsies: - Severe active colitis with ulceration, negative for granulomas, viral inclusions, and dysplasia. See comment. (HOLLY:pit 01/15/2020) QTP 01/15/2020 1313 Local . 02 Comment: Multiple fragments of acutely inflamed colonic mucosa as well as inflamed fibrovascular stroma are present. There is no definite basal lymphoplasmacytosis or crypt distortion in the intact mucosal fragments to elevate a suspicion of inflammatory bowel disease and several of the fragments show some surface ischemic features with relative preservation of the deeper aspects of crypts such that ischemic colitis is favored. (HOLLY:pit 01/15/2020) . 02 Electronically signed: . Vahid Berger MD, Pathologist NPI- [id number] . 01 Gross description: . The specimen is received in formalin, labeled "Nanette Fitzgerald, rectal biopsies" and consists of 3 fragments of ness-brown tissue measuring 0.3 x 0.2 cm and 0.3 x 0.3 cm which are entirely submitted in A1. (SDY; 01/14/2020) SYU/SYU 01/14/2020 1213 Local . 02 Pathologist provided ICD-10: K52.9, K62.6 . 02 CPT . 044070 Specimen Comment: A courtesy copy of this report has been sent to [phone] Specimen Comment: [phone] Specimen Comment: Report sent to / DR RUSHING Performed at: [address] [place] [address] PATHOLOGY RPT PROCEDURE Name: JENNIFERBRIDGETTENANETTE Room: [address] IN .R.#: [id number] Admission: 01/12/20 Date of : 58 Discharge: Report #: [id number] Path Case #: [id number] [address] [facility] [address], [place]HEEN Brush [id number] MD Hayden Guzman MD Phone: [phone] Performed at: 02 [facility] Thalia [facility] Marcell Weeks, SESAR Vásquez [id number] MD Vahid Berger MD Phone: [phone]
== END 2020-01-15 15:47 | disposition home or self-care (01) | DRG 378 ==
LOC: M.ERS 06:13 → M.TBA-ER 07:12 → M.2W 07:12
PROVIDERS: Family Medicine; Internal Medicine; Personal Emergency Response Attendant; ADMIT Internal Medicine; ATTEND Internal Medicine
PROC: 0DBN8ZX Excision of Sigmoid Colon, Via Natural or Artificial Opening Endoscopic, Diagnostic (ICD-10-PCS; principal; 2020-01-13)
PROC: 0DBP8ZX Excision of Rectum, Via Natural or Artificial Opening Endoscopic, Diagnostic (ICD-10-PCS; principal; 2020-01-13)
DX: K92.2 Gastrointestinal hemorrhage, unspecified (principal); D62 Acute posthemorrhagic anemia; K55.9 Vascular disorder of intestine, unspecified; F41.9 Anxiety disorder, unspecified; M19.90 Unspecified osteoarthritis, unspecified site; F43.10 Post-traumatic stress disorder, unspecified; F41.1 Generalized anxiety disorder; G89.4 Chronic pain syndrome; G40.909 Epilepsy, unspecified, not intractable, without status epilepticus; I25.10 Atherosclerotic heart disease of native coronary artery without angina pectoris; I25.2 Old myocardial infarction; Z95.5 Presence of coronary angioplasty implant and graft; Z88.1 Allergy status to other antibiotic agents; Z88.2 Allergy status to sulfonamides; Z88.8 Allergy status to other drugs, medicaments and biological substances; Z80.0 Family history of malignant neoplasm of digestive organs; Z82.49 Family history of ischemic heart disease and other diseases of the circulatory system; Z87.891 Personal history of nicotine dependence; Z20.828 Contact with and (suspected) exposure to other viral communicable diseases